=== PATIENT | male | born 1995 | race Caucasian/White ===

== ENCOUNTER 2017-08-08 18:29 | Emergency (ER) | payer BC, MEDICAID, SELFPAY ==
[2017-08-08 18:31] VITALS: BP 122/76; PULSE 86; RESP 16; TEMP 36.5; O2SAT 97; BMI 25.0
--- NOTE | 2017-08-08 19:18 | CT_ITS ---
STUDY: CT ABDOMEN AND PELVIS WITHOUT CONTRAST REASON FOR EXAM: Male, 22 years old. Right upper quadrant pain today RADIATION DOSAGE (If Supplied By Facility): CTDIvol = ( 6.37 ) mGy, DLP = ( 316.94 ) mGycm TECHNIQUE: Transaxial images were obtained from the dome of the diaphragm to the symphysis pubis without oral contrast, and without intravenous contrast. Sagittal and coronal images were reconstructed. Individualized dose optimization techniques were used for this CT. COMPARISON: None. FINDINGS: The visualized lung bases are unremarkable. The visualized portions of the heart are within normal limits. Small amount of pneumobilia. Otherwise, unremarkable liver. There is non-visualization of the gallbladder, which may be secondary to either contraction or a prior cholecystectomy. Normal spleen. Normal pancreas. Normal bilateral adrenal glands. Normal right kidney. Normal left kidney. Normal visualized stomach. Normal small intestine. Fecal retention throughout the colon, otherwise within normal limits. The appendix is visualized and appears normal. Multiple small lymph nodes in the right lower quadrant and mesenteric region. Could represent mesenteric lymphadenitis. Normal abdominal aorta. Normal inferior vena cava. Normal retroperitoneum. Normal urinary bladder. Normal visualized prostate gland. Normal abdominal wall. Normal osseous structures. CT/Abdomen/Pelvis without Cont IMPRESSION: 1. Nonvisualized appendix. Possibly contracted versus surgically absent. Small amount of pneumobilia. 2. Normal appendix. Multiple small lymph nodes in the right lower quadrant region could represent mesenteric lymphadenitis 3. Fecal retention within the colon. Electronically Signed: Billy Patel DO at 20:22 EDT Tel , Service support ,
[2017-08-08 19:53] LABS: AST(SGOT) 17 U/L (15-37); Alanine Aminotransfer ALT/SGPT 19 U/L (16-61); Albumin, Serum 3.3 g/dL (3.2-5.0); Alkaline Phosphatase 92 U/L (45-117); Anion Gap 4 (5-15); BUN 15 mg/dL (7-18); Calcium,Total 8.3 mg/dL (8.5-10.1); Chloride 109 mmol/L (98-107); Creatinine, Serum 1.15 mg/dL (0.70-1.30); EST Glomerular Filtration Rate 84 mL/min (>60); Est Glom Filt Rate - Afr Amer 102 mL/min (>60); Estimated Creatinine Clearance 77.81 ml/min; Globulin 3.4 g/dL (2.2-4.2); Glucose 85 mg/dL (74-106); Lipase 205 U/L (73-393); Potassium 3.7 mmol/L (3.5-5.1); Protein, Total 6.7 g/dL (6.4-8.2); Sodium Level 143 mmol/L (136-145)
[2017-08-08 19:56] LABS: Basophil# 0.02 X10^3/uL; Basophil% 0.3 % (0-1); Eosinophil# 0.11 X10^3/uL; Eosinophils% 1.6 % (0-5); Hematocrit 36.6 % (40-54); Hemoglobin 10.6 g/dl (13.0-16.5); Lymphocyte % 20.4 % (19-41); Mean Corpuscular Hgb 21.7 pg (27.0-32.0); Mean Platelet Vol. 10.6 fl (6.2-12.0); Monocyte# 0.31 X10^3/uL; Monocyte% 4.5 % (0-10); Neutrophil # 5.02 X10^3/uL (2.7-7.7); Neutrophil % 73.1 % (47-70); Platelet Count 235 K/mm3 (150-450); RBC Distribution Width CV 18.8 % (11.6-14.6); RBC Distribution Width SD 51.1 fl (35.1-43.9); Red Blood Count 4.88 M/mm3 (4.6-6.2); White Blood Count 6.9 K/mm3 (4.4-11.0)
[2017-08-08 19:57] LABS: Differential Indicated SCAN CRITERIA MET; POSITIVE COUNT NO; POSITIVE DIFFERENTIAL NO; POSITIVE MORPHOLOGY YES
[2017-08-08 20:05] LABS: Bacteria 0 SEEN /hpf (None Seen); Mucous, Urine 0 SEEN /hpf (<or=2+); Red Blood Cells-Urine 0 SEEN /hpf (0-5); Squamous Epithelial Cells - UA 0 SEEN /hpf (0-5); White Blood Cells 0 SEEN /hpf (0-5)
[2017-08-08 20:06] LABS: Color, Urine Yellow (Yellow); Glucose, Dipstick Normal (Normal); Ketone-Dipstick Negative (Negative); Leukocyte Esterase-Dipstick Negative /ul (Negative); Nitrite-Dipstick Negative (Negative); Occult Blood-Urine Negative /ul (Negative); Protein-Dipstick Negative (Negative); Urine Bilirubin Dipstick Negative (Negative); Urine Clarity Clear (Clear); Urine Urobilinogen Normal (Normal)
[2017-08-08 20:26] LABS: Differential Comment SCANNED; Platelet Estimate ADEQUATE (ADEQ)
--- NOTE | 2017-08-08 20:32 | ED.VISSUMM ---
- ER Visit Summary Date of Service: 08/08/17 Chief Complaint: [Abdominal pain] History of Present Illness: The patient is a 22 M [presents to the emergency department with abdominal pain that started a few weeks ago. Patient was seen by unit operator and diagnosed with possible gastritis versus possible peptic ulcer disease and started on Prilosec. Over the last 24 hours patient has had decreased appetite and while at school complaint of right lower quadrant pain several times that doubled him over. Mom is concerned because patient apparently has a high pain tolerance. Child does have a history of Down syndrome, sleep apnea, anxiety, autism. Child has not had a fever. He has had some nausea but no vomiting. Denies urinary symptoms.] Physical Examination: [HEENT-PERRLA, EOMI. Cranial nerves II through XII grossly intact. TMs clear. Mucous membranes moist. No adenopathy. Cardiovascular-regular rate and rhythm without murmur or ectopy Lungs-clear to auscultation, chest wall stable without crepitus or subcu emphysema Abdomen-normoactive bowel sounds, soft with mild diffuse tenderness. No rebound, rigidity, or perineal signs Extremities-intact ?4, normal range of motion, normal pulses, atraumatic] Test Results: [CBC with differential showing a 6.9, hemoglobin 10.6, hematocrit 37, platelets 275. Chemistries were normal. LFTs were normal. Lipase was 205. Urinalysis was normal. CT flank showed a normal appendix, absent gallbladder, scattered lymph nodes in the right lower quadrant which may represent mesenteric adenitis.] Emergency Department Course and Treatment: [None] Treatment Plan: [Follow-up with unit operator as patient does have endoscopy scheduled in about a month.] Disposition: [Discharged to home in stable condition.] Impression: [Abdominal pain-etiology uncertain] This note was generated with [employer] dictation software. It may contain incorrect words, spelling, and punctuation that were not noted in review of the chart prior to signing ED Disposition - Plan for ED Patient: Chief Complaint: Abd Pain Referrals: Billy Barth MD [Primary Care Provider] -
--- NOTE | 2017-08-08 20:35 | ED.DCSUM_ITS ---
- ER Visit Summary Date of Service: 08/08/17 Chief Complaint: [Abdominal pain] History of Present Illness: The patient is a 22 M [presents to the emergency department with abdominal pain that started a few weeks ago. Patient was seen by dairy nutrition specialist and diagnosed with possible gastritis versus possible peptic ulcer disease and started on Prilosec. Over the last 24 hours patient has had decreased appetite and while at school complaint of right lower quadrant pain several times that doubled him over. Mom is concerned because patient apparently has a high pain tolerance. Child does have a history of Down syndrome, sleep apnea, anxiety, autism. Child has not had a fever. He has had some nausea but no vomiting. Denies urinary symptoms.] Physical Examination: [HEENT-PERRLA, EOMI. Cranial nerves II through XII grossly intact. TMs clear. Mucous membranes moist. No adenopathy. Cardiovascular-regular rate and rhythm without murmur or ectopy Lungs-clear to auscultation, chest wall stable without crepitus or subcu emphysema Abdomen-normoactive bowel sounds, soft with mild diffuse tenderness. No rebound , rigidity, or perineal signs Extremities-intact ?4, normal range of motion, normal pulses, atraumatic] Test Results: [CBC with differential showing a 6.9, hemoglobin 10.6, hematocrit 37, platelets 275. Chemistries were normal. LFTs were normal. Lipase was 205. Urinalysis was normal. CT flank showed a normal appendix, absent gallbladder, scattered lymph nodes in the right lower quadrant which may represent mesenteric adenitis.] Emergency Department Course and Treatment: [None] Treatment Plan: [Follow-up with dairy nutrition specialist as patient does have endoscopy scheduled in about a month.] Disposition: [Discharged to home in stable condition.] Impression: [Abdominal pain-etiology uncertain] This note was generated with [employer] dictation software. It may contain incorrect words, spelling, and punctuation that were not noted in review of the chart prior to signing ED Disposition - Plan for ED Patient: Chief Complaint: Abd Pain Referrals: Billy Barth MD [Primary Care Provider] -
--- NOTE | 2017-08-08 20:35 | ED.DEP ---
ED Disposition - Plan for ED Patient: Chief Complaint: Abd Pain Instructions: ED Abdominal Pain Unkn Cause Male Referrals: Billy Barth MD [Primary Care Provider] - 3-5 Days
[2017-08-08 20:48] VITALS: BP 120/62; PULSE 79; RESP 16; O2SAT 96
== END 2017-08-08 20:48 | disposition home or self-care (01) ==
PROVIDERS: Emergency Provider Emergency Medicine; Family Provider Pediatrics; PCP Pediatrics
DX: R10.31 Right lower quadrant pain (principal); Q90.9 Down syndrome, unspecified; G47.30 Sleep apnea, unspecified; F84.0 Autistic disorder; F41.9 Anxiety disorder, unspecified; Z79.899 Other long term (current) drug therapy; R11.0 Nausea
CPT/HCPCS: 74176; 80053; 81001; 83690; 85025; 99283; J7030; A4216

== ENCOUNTER 2017-09-18 23:33 | Emergency (ER) | payer BC, MEDICAID, SELFPAY ==
[2017-09-18 23:34] VITALS: BP 125/58; PULSE 109; RESP 16; TEMP 39.5; O2SAT 98; BMI 23.6
[2017-09-19] MEDS: Ibuprofen 200 MG Tablet 400 MG PO (00:24)
--- NOTE | 2017-09-19 01:22 | ED.DCSUM_ITS ---
- ER Visit Summary Date of Service: 09/19/17 Chief Complaint: Fever History of Present Illness: The patient is a 22 M presenting for evaluation secondary to fever. Patient has a history of Down syndrome. Patient has had 2 days of fever that has been associated with some dizziness and nasal congestion. Patient was seen by primary care yesterday, was told that this likely was a viral illness, and was recommended conservative care. Patient had elevation of temperatures, so primary care started the patient on a course of Augmentin, first dose was given this evening. Patient apparently at home had a fever as high as 106 at 2330. Family decided to take patient in to the emergency department for further evaluation. Patient is not complaining of any headaches or neck stiffness has no skin rashes review of systems her parents otherwise negative. Physical Examination: Vital signs are within normal limits, patient is afebrile. General: Patient is well-nourished well-developed and in no acute distress. Head: Normocephalic, atraumatic Eyes: Pupils equal round and reactive bilaterally, extra occular motion intact bialterally ENT: Moist mucous membranes, normal TMs bilaterally, normal posterior oropharynx Neck: Supple, no lymphadenopathy, no JVD, no meningismus CVS: Heart regular rate and rhythm, no murmurs, rubs or gallops, radial pulses 2 + bilaterally Resp: Respirations nondistressed, lung sounds clear bilaterally Abdomen: Soft, nontender, nondistended, no palpable masses, normal bowel sounds Back: Nontender Extremities: Nontender, atraumatic, active full range of motion, no peripheral edema Skin: warm, no rashes, no petechia Neuro: Alert and oriented x 4, CN 2-12 intact, no lateralizing neurological defecits Psyc: Normal affect Test Results: Influenza negative Emergency Department Course and Treatment: Patient presented for evaluation secondary to fever. She was treated with ibuprofen in the emergency department. Flu swab was found to be negative. There is no evidence of other bacterial nidus of infection at this time, patient is already on Augmentin which really should cover most typical illnesses. Patient has no signs or symptoms consistent with meningitis encephalitis or other serious illness. I do not believe that further workup is necessary. Repeat temperature at 0 121 showed patient's temperature to be 94. Patient will be discharged with continued Augmentin and febrile management at home. Disposition: Discharge Impression: 1. Febrile illness This note was generated with Dragon dictation software. It may contain incorrect words, spelling, and punctuation that were not noted in review of the chart prior to signing ED Disposition - Plan for ED Patient: Disposition: Home or Assisted Living Chief Complaint: Fever Diagnosis: Febrile illness Instructions: ED Fever Unconf Cause Referrals: Billy Barth MD [Primary Care Provider] - As Needed
== END 2017-09-19 01:29 | disposition home or self-care (01) ==
PROVIDERS: Emergency Provider Emergency Medicine; Family Provider Pediatrics; PCP Pediatrics
DX: R50.9 Fever, unspecified (principal); Q90.9 Down syndrome, unspecified; R42 Dizziness and giddiness; Z79.899 Other long term (current) drug therapy
CPT/HCPCS: 87804; 99282

== ENCOUNTER 2017-09-24 18:31 | Emergency (ER) | payer BC, MEDICAID, SELFPAY ==
[2017-09-24 18:32] VITALS: BP 145/66; PULSE 110; RESP 16; TEMP 36.6; O2SAT 99; BMI 22.6
--- NOTE | 2017-09-24 19:35 | EKG12_ITS ---
Test Reason : FEVER Blood Pressure : / mmHG Vent. Rate : 110 BPM Atrial Rate : 110 BPM P-R Int : 128 ms QRS Dur : 084 ms QT Int : 320 ms P-R-T Axes : 066 068 036 degrees QTc Int : 433 ms Sinus tachycardia Otherwise normal ECG Confirmed by YOGI NAJERA, ALLISON ([id number]), newspaper or periodical editor MICHELLE CATHERINE ([id number]) on 09/27/2017 1:30:53 PM Referred By: SALINA Confirmed By:ALLISON CALIX MD
[2017-09-24] MEDS: 0.9% Normal Saline 1,000 ML 150 ML IV (19:55)
--- NOTE | 2017-09-24 20:00 | ED.VISSUMM ---
- ER Visit Summary Date of Service: 09/24/17 Chief Complaint: Fever History of Present Illness: The patient is a 22 M patient with fever and sore throat for the past week. T-max of 106 forehead. Mother states went to urgent care on Monday initially reported diagnosed with sinus infection placed on Augmentin, Claritin, Flonase. Patient later went to the ED here that evening for increasing fever, had influenza that was negative. Patient continued medicines. Started having diarrhea up until Monday. Patient will return to urgent care 2 days ago had a strep test that was negative. Unclear on culture. However had increasing ulcers in the mouth was placed on 1 day of valacyclovir. Augmentin was stopped. He been using Tylenol and Motrin, last dose earlier today approximately 6 hours ago. There has been no cough. Patient history of Down syndrome, anxiety, obstructive sleep apnea, GERD. Previous surgeries have been cholecystectomy along with tonsils and adenoids, also had biliary stents ?2. Physical Examination: General: Alert and oriented ?3, no acute distress HEENT: Normocephalic, atraumatic. Moist mucosa membranes there is cutaneous ulcers and soft palate along with posterior pharynx, there is cracking and ulcerations of the lower lips. There is a strawberry tongue. Airways patent. Mild rash bilateral cheeks. Normal conjunctiva. Neck: supple, anterior lymphadenopathy bilaterally. Cardiovascular: Regular rate and rhythm, no murmurs Respiratory: Normal breath sounds, symmetric, no distress Abdomen: Soft, nontender, nondistended Extremities: Nontender, no edema, pulses intact ?4. There is no cracking or rashes of the hands or feet. Neuro: no focal neurological deficits. Test Results: EKG sinus rate of 100, no ST changes, T-wave inversion in leads III. CBC, BMP, blood cultures, throat culture pending Emergency Department Course and Treatment: Patient is given IV fluids due to tachycardia. Patient's clinical findings and persistent fever concerns for Kawasaki disease. He has cracking lips with mucocutaneous ulcers, strawberry tongue, persistent fever, facial rash. His vitals are stable afebrile in the ED here. With this being the pediatric illness, patient with Down syndrome, do feel he may benefit from a pediatric management. I spoke with family agrees to talk to [facility]. I spoke with transfer line and Dr. Noffsinger, discussed the findings. He is excepted [facility]. He did not want to start aspirin until patient is evaluated. Spoke with family. They would like to take the patient themselves to [facility]. He is stable. IV will be left. They will be directed directly to [facility]. Treatment Plan: [] Disposition: Transfer to [facility] Impression: Kawasaki's syndrome This note was generated with [employer] dictation software. It may contain incorrect words, spelling, and punctuation that were not noted in review of the chart prior to signing ED Disposition - Plan for ED Patient: Disposition: [facility] Chief Complaint: Fever Diagnosis: Kawasaki's disease Referrals: Billy Barth MD [Primary Care Provider] -
[2017-09-24 20:43] LABS: Absolute Lymphocyte Count 1.07 X10^3/ul (0.83-4.51); Absolute Neutrophil Count 3.7 X10^3/uL (2.0-7.7); Basophil# 0.01 X10^3/uL; Basophil% 0.2 % (0-1); Differential Indicated SCAN CRITERIA MET; Eosinophil# 0.06 X10^3/uL; Eosinophils% 1.1 % (0-5); Hematocrit 33.3 % (40-54); Hemoglobin 10.1 g/dl (13.0-16.5); Lymphocyte # 1.07 X10^3/ul (4.0); Lymphocyte % 20.2 % (19-41); Mean Corp Hgb Conc 30.3 g/gl (32-36); Mean Corpuscular Hgb 21.6 pg (27.0-32.0); Mean Corpuscular Volume 71.3 fL (80-94); Mean Platelet Vol. 10.6 fl (6.2-12.0); Monocyte# 0.48 X10^3/uL; Monocyte% 9.1 % (0-10); Neutrophil # 3.65 X10^3/uL (2.7-7.7); POSITIVE COUNT NO; POSITIVE DIFFERENTIAL NO; POSITIVE MORPHOLOGY YES; Platelet Count 272 K/mm3 (150-450); RBC Distribution Width CV 19.4 % (11.6-14.6); RBC Distribution Width SD 50.1 fl (35.1-43.9); Red Blood Count 4.67 M/mm3 (4.6-6.2); White Blood Count 5.3 K/mm3 (4.4-11.0)
[2017-09-24 20:44] LABS: Lactic Acid 0.9 mmol/L (0.4-2.0)
[2017-09-24 20:47] LABS: ALB/GLOB Ratio 0.7 RATIO (0.9-2.4); AST(SGOT) 18 U/L (15-37); Alanine Aminotransfer ALT/SGPT 18 U/L (16-61); Albumin, Serum 2.9 g/dL (3.2-5.0); Alkaline Phosphatase 137 U/L (45-117); Anion Gap 10 (5-15); BUN 15 mg/dL (7-18); BUN/Creat Ratio 12.4 RATIO (10-20); Calcium,Total 8.7 mg/dL (8.5-10.1); Chloride 106 mmol/L (98-107); Creatinine, Serum 1.21 mg/dL (0.70-1.30); EST Glomerular Filtration Rate 79 mL/min (>60); Est Glom Filt Rate - Afr Amer 96 mL/min (>60); Estimated Creatinine Clearance 77.07 ml/min; Globulin 4.3 g/dL (2.2-4.2); Glucose 85 mg/dL (74-106); Protein, Total 7.2 g/dL (6.4-8.2); Sodium Level 141 mmol/L (136-145)
[2017-09-24 21:20] VITALS: PULSE 99; RESP 20; O2SAT 99
[2017-09-24 21:28] LABS: Differential Comment SCANNED
[2017-09-24 21:29] LABS: Anisocytosis 1+; Hypochromasia RARE; Microcytosis 1+; Ovalocyte 1+; Platelet Estimate ADEQUATE (ADEQ); Polychromasia RARE
== END 2017-09-24 21:22 | disposition designated cancer center or children's hospital (05) ==
PROVIDERS: Emergency Provider Emergency Medicine; Family Provider Pediatrics; PCP Pediatrics
DX: M30.3 Mucocutaneous lymph node syndrome [Kawasaki] (principal); Q90.9 Down syndrome, unspecified; F41.9 Anxiety disorder, unspecified; G47.33 Obstructive sleep apnea (adult) (pediatric); K21.9 Gastro-esophageal reflux disease without esophagitis; Z90.49 Acquired absence of other specified parts of digestive tract; Z79.899 Other long term (current) drug therapy
CPT/HCPCS: 80053; 83605; 84484; 85025; 87040; 87070; 93005; 96360; 99285; J7030; J7040; A4216

== ENCOUNTER 2020-06-22 09:59 | Emergency (ER) | payer OTHER, MEDICAID, SELFPAY ==
[2020-06-22 10:01] VITALS: BP 122/68; PULSE 107; RESP 17; TEMP 37.3; O2SAT 92; BMI 23.8
--- NOTE | 2020-06-22 10:19 | CT_ITS ---
STUDY: CT ABDOMEN AND PELVIS WITH CONTRAST REASON FOR EXAM: Male, 25 years old. ABD PAIN, DIARRHEA X 2 WEEKS, HX COVID RADIATION DOSAGE (If Supplied By Facility): CTDIvol = ( 15.21 ) mGy, DLP = ( 550.29 ) mGycm TECHNIQUE: Transaxial images were obtained from the dome of the diaphragm to the symphysis pubis without oral contrast. Oral and amp; IV Readi-CAT and amp; 100mL Isovue-300 was administered. Sagittal and coronal images were reconstructed. Individualized dose optimization techniques were used for this CT. COMPARISON: Comparison is made with prior study dated 08/08/2017. FINDINGS: Mild bibasilar pulmonary infiltrates. Minimal bilateral pleural effusions slightly more prominent on the right side. The visualized portions of the heart are within normal limits. Normal liver. The patient is status post cholecystectomy. There is evidence of a pneumobilia in the left lobe of the liver. This is unchanged. There is a 2 cm x 2.7 cm rounded hypodensity in the lateral aspect of the left lobe of the liver. There is mild splenomegaly. Normal pancreas. Normal bilateral adrenal glands. Normal right kidney. Normal left kidney. Normal visualized stomach. Normal small intestine. Nonspecific thickening of the wall of the colon worse in the left hemicolon suggestive of a colitis. The appendix is visualized and appears normal. Normal abdominal aorta. Normal inferior vena cava. Normal retroperitoneum. Diffusely thickened urinary bladder wall although the bladder is not completely distended. There is a small umbilical hernia containing fat. Normal osseous structures. CT/Abdomen/Pelvis WITH Contrast IMPRESSION: Colitis. Thickening of the urinary bladder wall although the bladder is not completely distended. Pneumobilia in the left lobe of the liver with a 2 cm x 2.7 cm well-defined nodule in the lateral aspect of the left lobe liver. Patchy bibasilar infiltrates. Electronically Signed: Willy Fontaine MD at 13:03 EST , Service support ,
--- NOTE | 2020-06-22 10:21 | ED.VISSUMM ---
- ER Visit Summary Date of Service: 06/22/20 Chief Complaint: Abdominal pain History of Present Illness: The patient is a 25 M who presents with abdominal pain, nausea, vomiting, and diarrhea for the past 2 weeks. Mother states patient has had watery diarrhea for 2 weeks. Mother states that his appetite has been decreasing. Mother states patient was able to eat chicken broth last night but has not been able to eat much over the past week. Patient admits to aching pain across his abdomen. Mother denies any melena or hematochezia. Mother denies any hematemesis or coffee-ground emesis. Patient states his pain is worse with eating. Patient did test positive for COVID-19 on 06/16/2020. Mother states patient has been having fevers up to 102 at home. Patient also admits to a cough. Physical Examination: Vital signs are stable except for mild tachycardia of 107. Patient is afebrile. Patient is in no acute distress. Oral mucosa is pink and slightly dry. Neck is supple. Trachea is midline. There is no JVD. Heart was regular rate and rhythm. Lungs are clear and equal bilaterally. Abdomen is soft. Bowel sounds are normal. There is diffuse tenderness. There is no rebound or guarding noted. Cranial nerves II through XII are intact. There are no focal motor or sensory deficits. Extremities are intact. There is no calf tenderness or edema. Test Results: CBC shows white blood cell count of 2.4. Comprehensive metabolic profile showed slightly elevated creatinine 1.39. Alk phos was slightly elevated to 49. Lipase was normal. Urinalysis does not show any evidence of urinary tract infection. CT scan of the abdomen pelvis was obtained. There is colitis. There are patchy bibasilar infiltrates. This was interpreted by the radiologist and reviewed by myself. Emergency Department Course and Treatment: Patient was given IV fluids and Zofran here. Patient was given p.o. fluids. Patient was given Cipro and Flagyl orally here. Patient is given prescriptions for Zofran, Cipro and Flagyl. Mother was instructed to advance his diet as tolerated. Mother was instructed to have the patient drink small sips of fluids but more frequently. Mother was instructed to follow-up with the patient's primary care physician in 5 to 7 days. Mother understood and was agreeable with the plan. All questions were answered. Disposition: Discharge home Impression: 1. Colitis 2. COVID-19 pneumonia This note was generated with [employer] software. It may contain incorrect words, spelling, and punctuation that were not noted in review of the chart prior to signing ED Disposition - Plan for ED Patient: Disposition: Home or Assisted Living Diagnosis: Colitis, Pneumonia due to COVID-19 virus Instructions: Coronavirus Disease 2019 (COVID-19): Overview, ED Vomiting and Diarrhea ... Prescriptions: Ciprofloxacin [Cipro] 500 mg PO BID #14 tab Transmission Status: Pending to [id number] metroNIDAZOLE [Flagyl] 500 mg PO Q6H #40 tab Transmission Status: Pending to [id number] Ondansetron [Zofran Odt] 4 mg PO Q8H PRN PRN #10 tab PRN Reason: Nausea Transmission Status: Pending to [id number] Referrals: Calderon Tubbs MD [Primary Care Provider] - 5-7 Days
[2020-06-22] MEDS: 0.9% Normal Saline 1,000 ML 1000 ML IV (10:44)
[2020-06-22] MEDS: Ondansetron 4 MG/2 ML Vial IV (10:44)
[2020-06-22 10:57] LABS: Bacteria 0 SEEN /hpf (None Seen); Mucous, Urine 0 SEEN /hpf (<or=2+); Red Blood Cells-Urine 0 SEEN /hpf (0-5); Squamous Epithelial Cells - UA 0 SEEN /hpf (0-5)
[2020-06-22 11:06] LABS: Absolute Lymphocyte Count 0.49 X10^3/uL (0.83-4.51); Absolute Neutrophil Count 1.8 X10^3/uL (2.0-7.7); Hematocrit 41.9 % (40-54); Hemoglobin 12.5 g/dL (13.0-16.5); Lymphocyte # 0.49 X10^3/ul (4.0); Lymphocyte % 20.2 % (19-41); Mean Corp Hgb Conc 29.8 g/dL (32-36); Mean Corpuscular Hgb 23.3 pg (27.0-32.0); Mean Corpuscular Volume 78.2 fL (80-94); Monocyte# 0.11 X10^3/uL; Monocyte% 4.5 % (0-10); NRBC Flagged by Analyzer 0 % (0-5); Neutrophil # 1.81 X10^3/uL (2.7-7.7); Neutrophil % 74.5 % (47-70); POSITIVE DIFFERENTIAL YES; Platelet Count 163 K/mm3 (150-450); RBC Distribution Width CV 19.2 % (11.6-14.6); RBC Distribution Width SD 51.9 fl (35.1-43.9); Red Blood Count 5.36 M/mm3 (4.6-6.2); White Blood Count 2.4 K/mm3 (4.4-11.0)
[2020-06-22 11:07] LABS: Color, Urine Yellow (Yellow); Glucose, Dipstick Normal (Normal); Ketone-Dipstick 5 mg/dl (Negative); Leukocyte Esterase-Dipstick 25 /ul (Negative); Nitrite-Dipstick Negative (Negative); Occult Blood-Urine Negative /ul (Negative); Protein-Dipstick 30 mg/dl (Negative); Specific Gravity, Urine 1.025 (1.002-1.030); Urine Bilirubin Dipstick 1 mg/dL (Negative); Urine Clarity Clear (Clear); Urine Urobilinogen 1 mg/dl (Normal)
[2020-06-22 11:08] LABS: Differential Indicated SCAN CRITERIA MET
[2020-06-22 11:12] LABS: White Blood Cells 0-5 SEEN /hpf (0-5)
[2020-06-22 11:23] LABS: ALB/GLOB Ratio 0.8 RATIO (0.9-2.4); AST(SGOT) 50 U/L (15-37); Alanine Aminotransfer ALT/SGPT 63 U/L (16-61); Albumin, Serum 3.1 g/dL (3.2-5.0); Alkaline Phosphatase 249 U/L (45-117); Anion Gap 10 (5-15); BUN 20 mg/dL (7-18); BUN/Creat Ratio 14.4 RATIO (10-20); Calcium,Total 8.7 mg/dL (8.5-10.1); Chloride 105 mmol/L (98-107); Creatinine, Serum 1.39 mg/dL (0.70-1.30); EST Glomerular Filtration Rate 66 mL/min (>60); Est Glom Filt Rate - Afr Amer 80 mL/min (>60); Estimated Creatinine Clearance 68.03 ml/min; Globulin 3.8 g/dL (2.2-4.2); Glucose 104 mg/dL (74-106); Lipase 312 U/L (73-393); Protein, Total 6.9 g/dL (6.4-8.2); Sodium Level 138 mmol/L (136-145)
[2020-06-22] MEDS: Ciprofloxacin 500 MG Tablet PO (14:02)
[2020-06-22] MEDS: metroNIDAZOLE 500 MG Tablet PO (14:02)
[2020-06-22 14:03] VITALS: BP 125/76; PULSE 99; RESP 15; O2SAT 97
[2020-06-23 13:21] LABS: Pathologist Review Reviewed
== END 2020-06-22 14:06 | disposition home or self-care (01) ==
PROVIDERS: Emergency Provider Emergency Medicine; PCP Family Medicine
DX: U07.1 COVID-19 (principal); K52.9 Noninfective gastroenteritis and colitis, unspecified; J12.82 Pneumonia due to coronavirus disease 2019; Z79.899 Other long term (current) drug therapy
CPT/HCPCS: 74177; 80053; 81001; 83690; 85025; 96361; 96374; 99284; J7030; Q9967; A4216; J2405

== ENCOUNTER 2020-06-25 10:19 | Inpatient (IN) | payer OTHER, MEDICAID, SELFPAY ==
[2020-06-25] VITALS (9 sets, daily range): BP systolic 97–123; BP diastolic 58–69; PULSE 75–102; RESP 18–35; TEMP 36.5–37.4; O2SAT 86–98; BMI 22.6; BMI 23.2; BMI 23.1
--- NOTE | 2020-06-25 10:21 | EKG12_ITS ---
Test Reason : SOB Blood Pressure : / mmHG Vent. Rate : 100 BPM Atrial Rate : 100 BPM P-R Int : 116 ms QRS Dur : 086 ms QT Int : 336 ms P-R-T Axes : 059 049 031 degrees QTc Int : 433 ms Normal sinus rhythm Normal ECG Confirmed by YOGI NAJERA, ALLISON ([id number]), managing editor DANIS DONNELLY ([id number]) on 06/26/2020 11:17:22 AM Referred By: OLGA Confirmed By:ALLISON CALIX MD
--- NOTE | 2020-06-25 10:24 | ED.VIS.GEN ---
History of Present Illness Chief Complaint: Shortness of Breath Narrative: Patient is brought in by parents, he was diagnosed with pneumonia from Covid as well as colitis a few days ago in the ED however at that time he was oxygenating well he was placed on Cipro and Flagyl for his colitis and sent home. He still has some diarrhea and has some dehydration however today the parents noticed that he was having difficulty breathing and he was hypoxic on the home pulse ox of 83%. Patient has Down syndrome but however he is high functioning and tell me a reasonable review of system and reasonable history. Past medical history: Down syndrome, COVID-19, colitis Medications: Cipro and Flagyl as above Social history: Lives at home with his parents Review of systems: All systems negative except as indicated General: History of fevers however no fever today Eyes: Denies: Visual changes - bilaterally ENT: Denies: Rhinorrhea, Sore throat Cardiovascular: Denies: Chest pain Respiratory: Shortness of breath with some slight nonproductive cough Gastrointestinal: Abdominal pain is improving, he still has some diarrhea. Genitourinary: Denies: Dysuria Musculoskeletal: Denies: Myalgias Skin: Denies: Rash Neurological: Denies: Headache, no focal weakness Psych: Reports: negative Hematologic: Denies: Easy bruising, Easy bleeding Physical exam General: Down syndrome features, does appear in some distress. Head: Normocephalic, Atraumatic Eyes: Conjunctiva not pale ENT: Dry mucous membranes. Some cyanosis around the lips. Neck: Supple, Nontender, No lymphadenopathy Cardiovascular: Regular rate, Regular rhythm, I could not appreciate a murmur however auscultation was difficult due to environment Respiratory: Tachypneic, he has mostly clear breath sounds bilaterally with only some scant coarse breath sounds. He is speaking in full sentences. No retractions. Abdomen: Soft, palpated, no significant tenderness. Back: Nontender, Normal Inspection. Negative for: CVA tenderness Extremities: Nontender, No edema Skin: Normal color, No rash Neurological: No focal deficit Past Medical History - Allergies and Home Meds Allergies/Adverse Reactions: Allergies Penicillins [PCN] Allergy (Unknown, Verified 06/25/20 10:20) Other MOTHER SEVERLY ALLERGIC TO PCN AND DOES NOT WANT SON TO HAVE Primary Care Physician: Calderon Tubbs MD [Primary Care Provider] - Smoking Status: Never smoker Diagnostic/Tx/Re-eval Chest X-Ray - ED: 1 View, Read by ED Physician, - - Medical Decision Making Patient is tolerating his mask quite well, because of his hypoxia I will admit him. I did give him steroids in the emergency department. ED Disposition - Plan for ED Patient: Disposition: [facility] Diagnosis: COVID-19, Hypoxia Referrals: Calderon Tubbs MD [Primary Care Provider] -
[2020-06-25 11:52] LABS: Hematocrit 40.7 % (40-54); Hemoglobin 12.3 g/dL (13.0-16.5); Mean Corp Hgb Conc 30.2 g/dL (32-36); Mean Corpuscular Hgb 23.7 pg (27.0-32.0); Mean Corpuscular Volume 78.6 fL (80-94); Mean Platelet Vol. 11.2 fl (6.2-12.0); Platelet Count 141 K/mm3 (150-450); RBC Distribution Width CV 19.3 % (11.6-14.6); RBC Distribution Width SD 53.1 fl (35.1-43.9); Red Blood Count 5.18 M/mm3 (4.6-6.2); White Blood Count 2.2 K/mm3 (4.4-11.0)
--- NOTE | 2020-06-25 12:05 | RAD_ITS ---
STUDY: X-RAY CHEST REASON FOR EXAM: Male, 25 years old. Shortness of breath x 16 days TECHNIQUE: Single AP portable view of the chest. COMPARISON: Comparison is made with prior study dated 05/08/2015. FINDINGS: EKG electrodes are seen. Patchy bilateral infiltrates worse in the left hemithorax. There is no demonstrated pleural abnormality. Normal size heart. Normal mediastinum and cleo. Normal visualized pulmonary arteries. Normal visualized aortic arch and descending thoracic aorta. Normal visualized thoracic spine. Normal visualized ribs, clavicles, and shoulders. There is no demonstrated abnormality of the visualized soft tissue structures of the upper abdomen. RAD/Chest 1 View (Portable) IMPRESSION: Patchy bilateral infiltrates worse in the left hemithorax. Follow-up is recommended. Electronically Signed: Willy Fontaine MD at 12:30 EST , Service support ,
--- NOTE | 2020-06-25 12:05 | NURSING ---
This nurse coming onto floor at this time. Will catch patient up for charting and monitor for distress. No report received yet, chart reviewed.
[2020-06-25 12:07] LABS: ALB/GLOB Ratio 0.8 RATIO (0.9-2.4); AST(SGOT) 75 U/L (15-37); Alanine Aminotransfer ALT/SGPT 63 U/L (16-61); Albumin, Serum 2.8 g/dL (3.2-5.0); Alkaline Phosphatase 188 U/L (45-117); Anion Gap 7 (5-15); BUN 16 mg/dL (7-18); BUN/Creat Ratio 12.4 RATIO (10-20); Calcium,Total 8.3 mg/dL (8.5-10.1); Chloride 104 mmol/L (98-107); Creatinine, Serum 1.29 mg/dL (0.70-1.30); EST Glomerular Filtration Rate 72 mL/min (>60); Est Glom Filt Rate - Afr Amer 87 mL/min (>60); Globulin 3.5 g/dL (2.2-4.2); Glucose 116 mg/dL (74-106); Potassium 4.1 mmol/L (3.5-5.1); Protein, Total 6.3 g/dL (6.4-8.2); Sodium Level 136 mmol/L (136-145)
--- NOTE | 2020-06-25 12:37 | CT_ITS ---
STUDY: CTA CHEST REASON FOR EXAM: Male, 25 years old. +COVID DAY 16, INCREASED SHORTNESS OF BREATH, ABD PAIN RADIATION DOSAGE (If Supplied By Facility): CTDIvol = ( 10.24 ) mGy, DLP = ( 970.50 ) mGycm TECHNIQUE: The examination was performed with the intravenous administration of IV 75mL Isovue-370. Post-processing of the angiographic images was performed, with multiplanar reformation and 3D reconstruction. Individualized dose optimization techniques were used for this CT. COMPARISON: None. FINDINGS: Normal enhancement of the main pulmonary artery and right and left pulmonary arteries. Normal enhancement of the bilateral peripheral pulmonary arteries. There is no demonstrated pulmonary embolism. Normal thoracic aorta and visualized great vessels. There is no demonstrated aortic dissection. Normal heart and pericardium. Normal mediastinum. Normal hilar regions. Normal visualized trachea and bronchi. The lungs are well expanded. Multiple bilateral patchy infiltrates throughout both lungs involving the upper and lower lobes. There is a tendency towards peripheral infiltration and distribution suggestive of possible Covid pneumonitis. Small bilateral pleural effusions. Normal chest wall structures. Normal osseous structures. See detailed report on the CT scan the abdomen and pelvis. CT/CTA Chest W/WO Contrast IMPRESSION: Multiple bilateral patchy infiltrates involving both lungs as described. Small bilateral pleural effusions. Electronically Signed: Willy Fontaine MD at 13:43 EST , Service support ,
--- NOTE | 2020-06-25 12:37 | CT_ITS ---
STUDY: CT ABDOMEN AND PELVIS WITH CONTRAST REASON FOR EXAM: Male, 25 years old. +COVID DAY 16, INCREASED SHORTNESS OF BREATH, ABD PAIN RADIATION DOSAGE (If Supplied By Facility): CTDIvol = ( 10.24 ) mGy, DLP = ( 970.50 ) mGycm TECHNIQUE: Transaxial images were obtained from the dome of the diaphragm to the symphysis pubis without oral contrast. IV 75mL Isovue-370 was administered. Sagittal and coronal images were reconstructed. Individualized dose optimization techniques were used for this CT. COMPARISON: Comparison is made with prior examination of 06/22/2020. FINDINGS: Since prior examination, there has been progressive infiltrates in the lower lobes with small bilateral pleural effusions. The visualized portions of the heart are within normal limits. Pneumobilia in the left intrahepatic biliary ducts. Persistent 3.2 cm x 1.9 cm hypodensity in the lateral aspect of the left lobe of the liver. There is some peripheral enhancement. This may represent an hemangioma. The patient is status post cholecystectomy. There is mild splenomegaly. Normal pancreas. Normal bilateral adrenal glands. Normal right kidney. Normal left kidney. Normal visualized stomach. Normal small intestine. Normal colon. The appendix is visualized and appears normal. Normal abdominal aorta. Normal inferior vena cava. Normal retroperitoneum. There is a 2.1 cm x 3.3 cm polypoid filling defect at the base of the bladder. Normal abdominal wall. Normal osseous structures. CT/Abdomen/Pelvis W IV Cont ONLY IMPRESSION: Small bilateral pleural effusions with progressive infiltrates in both lower lobes. Stable appearance of the pneumobilia in the left lobe of the liver. Stable 3.2 cm x 1.9 cm hypodensity in the lateral aspect of the left lobe of the liver suggestive of a small hemangioma. 2.1 cm x 3.3 cm polypoid filling defect at the base of the bladder. Electronically Signed: Willy Fontaine MD at 13:40 EST , Service support ,
[2020-06-25] MEDS: dexAMETHasone 10 MG/ML Vial 6 MG IV (12:58)
[2020-06-25 13:09] LABS: Color, Urine Yellow (Yellow); Glucose, Dipstick Normal (Normal); Ketone-Dipstick 15 mg/dl (Negative); Leukocyte Esterase-Dipstick 100 /ul (Negative); Nitrite-Dipstick Positive (Negative); Occult Blood-Urine Negative /ul (Negative); Protein-Dipstick 30 mg/dl (Negative); Specific Gravity, Urine 1.025 (1.002-1.030); Urine Bilirubin Dipstick Negative (Negative); Urine Clarity Sl. Cloudy (Clear); Urine Urobilinogen 1 mg/dl (Normal)
[2020-06-25 13:17] LABS: AST(SGOT) 78 U/L (15-37); Alanine Aminotransfer ALT/SGPT 64 U/L (16-61); Albumin, Serum 2.8 g/dL (3.2-5.0); Alkaline Phosphatase 182 U/L (45-117); Bilirubin, Direct < 0.05 mg/dL (0.00-0.30); Globulin 3.6 g/dL (2.2-4.2); Protein, Total 6.4 g/dL (6.4-8.2)
--- NOTE | 2020-06-25 14:18 | NURSING ---
PCU KOTSONIS PNEUMONIA, COVID
--- NOTE | 2020-06-25 14:36 | NURSING ---
DR DE LA GARZA IN ROOM
--- NOTE | 2020-06-25 16:11 | HP.PCM_ITS ---
History of Present Illness Date of Admission: 06/25/20 Chief Complaint: Shortness of breath and abdominal pain The patient is a 25 year old M with a PMH as below who presents to the hospital with abdominal pain and worsening shortness of breath and dyspnea on exertion. He does have a history of Down syndrome and so a lot of the history was obtained from the parents. They state that he had been symptomatic with Covid with a cough which started 16 days ago. The abdominal pain had been fairly consistent at that time as well, on 06/22/2020 they presented to the ER he was found to have colitis on his abdominal CT, as well as a slightly thickened bladder. He was sent home with oral Cipro and Flagyl however presents today now with hypoxia. They tested him at home and he had 83% on room air. When he presented to the hospital he was 86% on room air therefore he was started on a Ventimask because he does not tolerate nasal cannula. Chest x-ray demonstrates worse bilateral pulmonary infiltrates with a normal temperature and leukopenia. Past Medical History Allergies Penicillins [PCN] Allergy (Unknown, Verified 06/25/20 10:20) Other MOTHER SEVERLY ALLERGIC TO PCN AND DOES NOT WANT SON TO HAVE Home Medications: Ambulatory Orders Medication Instructions Recorded Sertraline HCl [Zoloft] 50 mg PO DAILY 03/05/15 Fluticasone 0.05% [Flonase Nasal 1 spray NASAL DAILY 09/24/17 [place]] Loratadine [Claritin] 10 mg PO DAILY 09/24/17 Ciprofloxacin [Cipro] 500 mg PO BID #14 tab 06/22/20 Omeprazole Magnesium [Prilosec Otc] 20 mg PO DAILY 06/22/20 Ondansetron [Zofran Odt] 4 mg PO Q8H PRN PRN #10 tab 06/22/20 metroNIDAZOLE [Flagyl] 500 mg PO Q6H #40 tab 06/22/20 Cholecalciferol (Vitamin D3) 2,000 unit PO DAILY 06/25/20 [D3-1999] Surgical History: cholecystectomy, - - Multiple ERCPs Lives: With Family Smoking Status: Never smoker Alcohol: None Drugs: None - *Family History Maternal History Items: No pertinent history Paternal History Items: High Cholesterol Review of Systems Constitutional: Reports: Fever. Denies: Chills, Weight Change HEENT: Denies: Head Aches, Sinus Congestion, Sinus Drainage Cardiovascular: Denies: Chest Pain, Palpitations Respiratory: Reports: Shortness of Breath. Denies: Cough, Shortness of breath at rest, Sputum production Gastrointestinal: Reports: Abdominal Pain, Diarrhea. Denies: Nausea, Vomiting Genitourinary: Denies: Dysuria Musculoskeletal: Denies: Joint Pain, Joint Tenderness Skin: Denies: Rash, Wounds Neurological: Denies: Focal weakness, Numbness, Tingling Psychiatric: Denies: Anxiety, Depression Hematologic/ Lymphatic: Denies: Easy Bruising, Easy Bleeding VTE Information - Inpt Only VTE Present on Admission: No Patient Problems: Active and Suspected Problems COVID-19 (Acute) Hypoxia (Acute) - Physical Exam Vitals/I&O's: Vital Signs Temp Pulse Resp BP Pulse Ox 99.0 F 84 27 H 123/69 H 94 06/25/20 15:59 06/25/20 15:59 06/25/20 15:59 06/25/20 15:59 06/25/20 15:59 Oxygen Flow Rate (L/min) 6 Oxygen Delivery Method Venturi Mask Weight: 135 lb 2.294 oz Body Mass Index (BMI) 23.1 Intake and Output for Last 24 Hours 06/23/20 06/24/20 06/25/20 23:59 23:59 23:59 Intake Total 500 / 500 Balance 500 / 500 General: Alert, Oriented x3, Cooperative, No apparent distress HEENT: Atraumatic, PERRLA, EOMI, Normocephalic Oral: Dry Mucosa Neck: Supple, No JVD Lungs: Normal air movement, No rhonchi, No wheeze, No rales, Diminished Cardiovascular: Regular rate, Regular Rhythm, Normal S1, Normal S2, No murmurs Abdomen: Soft, Non-Distended, No Hepato-splenomegaly, Tender Extremities: No edema, Capillary Refill Less than 3 Seconds Skin: No rashes, No breakdown Neurological: Neuro grossly intact, Sensory exam intact to light touch and pain Psych/Mental Status: Flat Affect Laboratory Results 06/25/20 11:40: WBC 2.2 L, RBC 5.18, Hgb 12.3 L, Hct 40.7, MCV 78.6 L, MCH 23.7 L, MCHC 30.2 L, RDW Std Deviation 53.1 H, RDW Coeff of Vidal 19.3 H, Plt Count 141 L, MPV 11.2 06/25/20 11:40: Sodium 136, Potassium 4.1, Chloride 104, Carbon Dioxide 25.0, Anion Gap 7, BUN 16, Creatinine 1.29, Estim Creat Clear Calc 73.30, Est GFR (MDRD) Af Amer 87, Est GFR (MDRD) Non-Af 72, BUN/Creatinine Ratio 12.4, Glucose 116 H, Calcium 8.3 L, Total Bilirubin 0.30, AST 75 H, ALT 63 H, Alkaline Phosphatase 188 H, Troponin I < 0.015, Total Protein 6.3 L, Albumin 2.8 L, Globulin 3.5, Albumin/Globulin Ratio 0.8 L 06/25/20 11:40: Total Bilirubin 0.40, Direct Bilirubin < 0.05, AST 78 H, ALT 64 H, Alkaline Phosphatase 182 H, Total Protein 6.4, Albumin 2.8 L, Globulin 3.6 06/25/20 12:55: Urine Color Yellow, Urine Clarity Sl. Cloudy, Urine pH 5.0, Ur Specific [place] 1.025, Urine Protein 30 H, Urine Glucose (UA) Normal, Urine Ketones 15 H, Urine Occult Blood Negative, Urine Nitrite Positive H, Urine Bilirubin Negative, Urine Urobilinogen 1 H, Ur Leukocyte Esterase 100 H Current Medications Acetaminophen (Acetaminophen 325 Mg Tablet) 650 mg PO Q6H PRN PRN PRN Reason: Pain Score 1-10/Temp > 100.7 F Dexamethasone Sodium Phosphate (Dexamethasone 4 Mg/Ml Vial) 6 mg IV DAILY [facility] Stop: 07/04/20 10:01 Enoxaparin Sodium (Enoxaparin 40 Mg/0.4 Ml Syringe) 40 mg SC DAILY [facility] Sodium Chloride () 1,000 mls @ 100 mls/hr IV .Q10H [facility] Stop: 06/25/20 21:04 Ciprofloxacin (Cipro) 400 mg in 200 mls @ 200 mls/hr IV Q12 [facility] Metronidazole (Flagyl) 500 mg in 100 mls @ 100 mls/hr IV Q8 [facility] Melatonin (Melatonin 3 Mg Tablet) 3 mg PO QHS PRN PRN PRN Reason: INSOMNIA Ondansetron HCl (Ondansetron 4 Mg/2 Ml Vial) 4 mg IV Q8H PRN PRN PRN Reason: NAUSEA/VOMITING Sodium Chloride (0.9% Saline Lock 10 Ml Syringe) 10 - 40 ml IV UD PRN PRN Reason: SALINE FLUSH Assessment/Plan All Active Problems COVID-19 (Acute) Hypoxia (Acute) 1. Acute hypoxic respiratory failure secondary to COVID-19 pneumonia/infectious colitis -Symptoms started 16 days ago, and he tested +3 to 4 days after that -With his parents, and his brother had Covid -Given that he is greater than 2 weeks out from symptom onset, will hold off on giving him remdesivir and just proceed with Decadron -We will proceed with Cipro and Flagyl, and make him n.p.o. -Because of the combination of his infectious colitis and Covid, will give him a little bit of fluid however I did discuss with his parents that it is better to keep Covid patients a little bit on the soap drier operator side, so he will receive a total of 1 L of IV fluids and then will adjust as necessary -We will check a strep urine antigen as well as Legionella antigen as well as a respiratory panel 2. 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 Down syndrome/anxiety/depression -Stable -Continue with Zoloft DVT: Lovenox Inpatient E&M: 07328 Init Hosp L3
[2020-06-25] MEDS: 0.9% Normal Saline 1,000 ML 100 ML IV (16:44)
[2020-06-25] MEDS: metroNIDAZOLE 500 MG/100 ML BAG 100 MG IV (20:45)
[2020-06-25] MEDS: Ciprofloxacin 400 MG/200 ML BAG 200 MG IV (21:58)
[2020-06-26] VITALS (9 sets, daily range): BP systolic 84–97; BP diastolic 42–61; PULSE 62–88; RESP 18–22; TEMP 36.4–37; O2SAT 90–96; BMI 23.1
[2020-06-26] MEDS: metroNIDAZOLE 500 MG/100 ML BAG 100 MG IV ×3 (05:59→21:09)
[2020-06-26] MEDS: guaiFENesin 10 ML UDC (200MG/10ML) 20 ML PO ×2 (06:06→15:39)
[2020-06-26 06:10] LABS: Absolute Lymphocyte Count 0.33 X10^3/uL (0.83-4.51); Absolute Neutrophil Count 1.2 X10^3/uL (2.0-7.7); Hematocrit 36.1 % (40-54); Hemoglobin 11.2 g/dL (13.0-16.5); Lymphocyte # 0.33 X10^3/ul (4.0); Lymphocyte % 19.8 % (19-41); Mean Corpuscular Hgb 24.1 pg (27.0-32.0); Mean Corpuscular Volume 77.6 fL (80-94); Mean Platelet Vol. 10.6 fl (6.2-12.0); Monocyte# 0.09 X10^3/uL; Monocyte% 5.4 % (0-10); NRBC Flagged by Analyzer 0 % (0-5); Neutrophil # 1.21 X10^3/uL (2.7-7.7); Neutrophil % 72.4 % (47-70); POSITIVE DIFFERENTIAL YES; POSITIVE MORPHOLOGY YES; Platelet Count 142 K/mm3 (150-450); RBC Distribution Width CV 19.8 % (11.6-14.6); RBC Distribution Width SD 54.6 fl (35.1-43.9); Red Blood Count 4.65 M/mm3 (4.6-6.2); White Blood Count 1.7 K/mm3 (4.4-11.0)
[2020-06-26 06:12] LABS: Differential Indicated SCAN CRITERIA MET
[2020-06-26 06:34] LABS: Anion Gap 8 (5-15); BUN 16 mg/dL (7-18); BUN/Creat Ratio 16.6 RATIO (10-20); Chloride 107 mmol/L (98-107); Creatinine, Serum 0.96 mg/dL (0.70-1.30); EST Glomerular Filtration Rate 101 mL/min (>60); Est Glom Filt Rate - Afr Amer 122 mL/min (>60); Glucose 105 mg/dL (74-106); Potassium 4.2 mmol/L (3.5-5.1); Sodium Level 138 mmol/L (136-145)
[2020-06-26 06:36] LABS: Differential Comment SCANNED
[2020-06-26 06:37] LABS: Anisocytosis 2+; Microcytosis 2+; Ovalocyte RARE
[2020-06-26 06:38] LABS: Schistocytes RARE
--- NOTE | 2020-06-26 09:14 | PN_ITS ---
Patient Problems: Active and Suspected Problems COVID-19 (Acute) Hypoxia (Acute) Subjective: Doing better, he is coming down on his oxygen and his abdominal pain is feeling better. He has not had a bowel movement 2 days. Vitals/I&O's: Vital Signs Temp Pulse Resp BP Pulse Ox 98.6 F 62 20 H 97/55 L 92 06/26/20 06:05 06/26/20 03:20 06/26/20 03:20 06/26/20 03:20 06/26/20 05:38 Oxygen Flow Rate (L/min) 6 Oxygen Delivery Method Venturi Mask Weight: 135 lb 2.294 oz Body Mass Index (BMI) 23.1 Intake and Output for Last 24 Hours 06/24/20 06/25/20 06/26/20 23:59 23:59 23:59 Intake Total 1299 / 2099 1400 / 1400 Balance 1299 / 2099 1399 / 1400 General: Alert, Oriented x3, Cooperative, No apparent distress HEENT: Atraumatic, PERRLA, EOMI, Normocephalic Oral: Dry Mucosa Neck: Supple, No JVD Lungs: Normal air movement, No rhonchi, No wheeze, No rales, Diminished Cardiovascular: Regular rate, Regular Rhythm, Normal S1, Normal S2, No murmurs Abdomen: Soft, Non-Distended, No Hepato-splenomegaly, nontender Extremities: No edema, Capillary Refill Less than 3 Seconds Skin: No rashes, No breakdown Neurological: Neuro grossly intact, Sensory exam intact to light touch and pain Psych/Mental Status: Flat Affect Microbiology Past 72 Hours 06/25/20 19:37 Mucosa - Nasopharyngeal Respiratory Panel (PCR) - Final 06/25/20 12:55 Urine, Clean Catch Legionella Antigen - Final 06/25/20 12:55 Urine, Clean Catch Streptococcus pneumoniae Antigen (M - Final Laboratory Results 06/25/20 11:40: WBC 2.2 L, RBC 5.18, Hgb 12.3 L, Hct 40.7, MCV 78.6 L, MCH 23.7 L, MCHC 30.2 L, RDW Std Deviation 53.1 H, RDW Coeff of Vidal 19.3 H, Plt Count 141 L, MPV 11.2 06/25/20 11:40: Sodium 136, Potassium 4.1, Chloride 104, Carbon Dioxide 25.0, Anion Gap 7, BUN 16, Creatinine 1.29, Estim Creat Clear Calc 73.30, Est GFR (MDRD) Af Amer 87, Est GFR (MDRD) Non-Af 72, BUN/Creatinine Ratio 12.4, Glucose 116 H, Calcium 8.3 L, Total Bilirubin 0.30, AST 75 H, ALT 63 H, Alkaline Phosphatase 188 H, Troponin I < 0.015, Total Protein 6.3 L, Albumin 2.8 L, Globulin 3.5, Albumin/Globulin Ratio 0.8 L 06/25/20 11:40: Total Bilirubin 0.40, Direct Bilirubin < 0.05, AST 78 H, ALT 64 H, Alkaline Phosphatase 182 H, Total Protein 6.4, Albumin 2.8 L, Globulin 3.6 06/25/20 12:55: Urine Color Yellow, Urine Clarity Sl. Cloudy, Urine pH 5.0, Ur Specific [place] 1.025, Urine Protein 30 H, Urine Glucose (UA) Normal, Urine Ketones 15 H, Urine Occult Blood Negative, Urine Nitrite Positive H, Urine Bilirubin Negative, Urine Urobilinogen 1 H, Ur Leukocyte Esterase 100 H 06/26/20 05:35: WBC 1.7 L, RBC 4.65, Hgb 11.2 L, Hct 36.1 L, MCV 77.6 L, MCH 24.1 L, MCHC 31.0 L, RDW Std Deviation 54.6 H, RDW Coeff of Vidal 19.8 H, Plt Count 142 L, MPV 10.6, Immature Gran % (Auto) 2.400 H, Neut % (Auto) 72.4 H, Lymph % (Auto) 19.8, [place] % (Auto) 5.4, Eos % (Auto) 0.0, Baso % (Auto) 0.0, Absolute Neuts (auto) 1.2 L, Absolute Lymphs (auto) 0.33 L, Nucleated RBC % 0, Differential Comment SCANNED, Diff Path Review May foll, Anisocytosis 2+, Microcytosis 2+, Ovalocytes RARE, Schistocytes RARE 06/26/20 05:35: Sodium 138, Potassium 4.2, Chloride 107, Carbon Dioxide 23.0, Anion Gap 8, BUN 16, Creatinine 0.96, Estim Creat Clear Calc 98.50, Est GFR (MDRD) Af Amer 122, Est GFR (MDRD) Non-Af 101, BUN/Creatinine Ratio 16.6, Glucose 105, Calcium 8.0 L Current Medications Acetaminophen (Acetaminophen 325 Mg Tablet) 650 mg PO Q6H PRN PRN PRN Reason: Pain Score 1-10/Temp > 100.7 F Calamine/Phenol (Menthol/Lanolin/Calamine/Znox 113 Gm Tube) 1 applic TOPICAL BID [facility]; Protocol Dexamethasone Sodium Phosphate (Dexamethasone 4 Mg/Ml Vial) 6 mg IV DAILY [facility] Stop: 07/04/20 10:01 Enoxaparin Sodium (Enoxaparin 40 Mg/0.4 Ml Syringe) 40 mg SC DAILY [facility] Guaifenesin (Guaifenesin 10 Ml Udc (200mg/10ml)) 20 ml PO Q4H PRN PRN PRN Reason: COUGH Last Admin: 06/26/20 06:06 Dose: 20 ml Documented by: Ciprofloxacin (Cipro) 400 mg in 200 mls @ 200 mls/hr IV Q12 [facility] Last Infusion: 06/25/20 23:10 Dose: Infused Documented by: Metronidazole (Flagyl) 500 mg in 100 mls @ 100 mls/hr IV Q8 [facility] Last Infusion: 06/26/20 07:15 Dose: Infused Documented by: Loratadine (Loratadine 10 Mg Tablet) 10 mg PO DAILY [facility] Melatonin (Melatonin 3 Mg Tablet) 3 mg PO QHS PRN PRN PRN Reason: INSOMNIA Ondansetron HCl (Ondansetron 4 Mg/2 Ml Vial) 4 mg IV Q8H PRN PRN PRN Reason: NAUSEA/VOMITING Pantoprazole Sodium (Pantoprazole Sodium 20 Mg Tablet) 20 mg PO DAILY [facility] Sertraline HCl (Sertraline 50 Mg Tablet) 50 mg PO DAILY [facility] Sodium Chloride (0.9% Saline Lock 10 Ml Syringe) 10 - 40 ml IV UD PRN PRN Reason: SALINE FLUSH STROKE Vital Signs/Narrative: Vital Signs Temp Pulse Ox 06/26/20 06:05 98.6 F 06/26/20 05:38 92 Medical Necessity - Tobacco Use Smoking Status: Never smoker Assessment/Plan All Active Problems COVID-19 (Acute) Hypoxia (Acute) 1. Acute hypoxic respiratory failure secondary to COVID-19 pneumonia/infectious colitis -Symptoms started 16 days ago, and he tested +3 to 4 days after that -With his parents, and his brother had Covid -Given that he is greater than 2 weeks out from symptom onset, will hold off on giving him remdesivir and just proceed with Decadron -We will proceed with Cipro and Flagdean, will start him on clears today and see how he does -Oxygen is coming down therefore we will plan for an amatory pulse ox in the morning -Because of the combination of his infectious colitis and Covid, will give him a little bit of fluid however I did discuss with his parents that it is better to keep Covid patients a little bit on the bone drier side, so he will receive a total of 1 L of IV fluids and then will adjust as necessary -Legionella and strep urine antigens as well as respiratory panel were unremarkable 2. 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 Down syndrome/anxiety/depression -Stable -Continue with Zoloft DVT: Lovenox Inpatient E&M: 17136 Subs Hosp L2
[2020-06-26] MEDS: Ciprofloxacin 400 MG/200 ML BAG 200 MG IV ×2 (09:51→22:21)
[2020-06-26] MEDS: Pantoprazole Sodium 20 MG Tablet PO (09:52)
[2020-06-26] MEDS: Loratadine 10 MG Tablet PO (09:52)
[2020-06-26] MEDS: Sertraline 50 MG Tablet PO (09:52)
[2020-06-26] MEDS: Enoxaparin 40 MG/0.4 ML Syringe SC (09:53)
[2020-06-26] MEDS: Menthol/Lanolin/Calamine/Znox 113 GM Tube 1 APPLIC TOPICAL ×2 (09:54→21:10)
[2020-06-26] MEDS: dexAMETHasone 4 MG/ML Vial 6 MG IV (09:55)
--- NOTE | 2020-06-26 10:40 | CASEMGMT ---
EDEL MELTON called father in room for initial transition planning/care coordination assessment. EDEL MELTON introduced self and role at [facility]. Patient has down syndrome and parents are guardians. Father Akin willing to participate in assessment and is able to answer all questions appropriately. Care providers, pharmacy, and demographics verified. Father wishes for patient to discharge home, denies need for home health at this time. Will monitor for need for home oxygen. Father states he has no further needs or concerns at this time. CM to follow for discharge planning needs that may arise. PCP: Suly Specialists: AUDREY Treviño Preferred Pharmacy: [facility] Insurance: MMO, [place] Prescription Benefit: yes Living Will/HPOA: none LNOK: parents who are patient's legal guardians Living Arrangements: Patient lives with parents in a 2 story home. Patient lives in basement and is able to ambulate stairs. Patient is independent with self care. Transportation: parents DME/HHC: Parents deny any DME or previous HHC. Will monitor for need for home oxygen. Parents were provided a list of DME providers consistent with the patient?s preferred geographic region, medical needs, and insurance network. Disposition Plan: Patient to discharge home with family support and follow-up plans in place. Jacklyn ROWAN, RN, CM
[2020-06-26 13:19] LABS: Pathologist Review Reviewed
--- NOTE | 2020-06-26 14:57 | PCM.NTREPORT ---
Nutrition Therapy Report - History Current diet / nutrition support order:: clear liquids - Anthropometric Measurements Height:: 5 ft 4 in Weight:: 61.3 kg Body Mass Index (BMI):: 23.1 - Relevant Labs Relevant Labs:: WBC 1.7 K/mm3 (4.4-11.0) L 06/26/20 05:35 Hgb 11.2 g/dL (13.0-16.5) L 06/26/20 05:35 Hct 36.1 % (40-54) L 06/26/20 05:35 MCV 77.6 fL (80-94) L 06/26/20 05:35 MCH 24.1 pg (27.0-32.0) L 06/26/20 05:35 MCHC 31.0 g/dL (32-36) L 06/26/20 05:35 RDW Std Deviation 54.6 fl (35.1-43.9) H 06/26/20 05:35 RDW Coeff of Vidal 19.8 % (11.6-14.6) H 06/26/20 05:35 Plt Count 142 K/mm3 (150-450) L 06/26/20 05:35 Immature Gran % (Auto) 2.400 % (0.0-0.9) H 06/26/20 05:35 Neut % (Auto) 72.4 % (47-70) H 06/26/20 05:35 Absolute Neuts (auto) 1.2 X10^3/uL (2.0-7.7) L 06/26/20 05:35 Absolute Lymphs (auto) 0.33 X10^3/uL (0.83-4.51) L 06/26/20 05:35 Glucose 116 mg/dL (74-106) H 06/25/20 11:40 Calcium 8.0 mg/dL (8.5-10.1) L 06/26/20 05:35 AST 75 U/L (15-37) H 06/25/20 11:40 AST 78 U/L (15-37) H 06/25/20 11:40 ALT 63 U/L (16-61) H 06/25/20 11:40 ALT 64 U/L (16-61) H 06/25/20 11:40 Alkaline Phosphatase 182 U/L (45-117) H 06/25/20 11:40 Alkaline Phosphatase 188 U/L (45-117) H 06/25/20 11:40 Total Protein 6.3 g/dL (6.4-8.2) L 06/25/20 11:40 Albumin 2.8 g/dL (3.2-5.0) L 06/25/20 11:40 Albumin 2.8 g/dL (3.2-5.0) L 06/25/20 11:40 Albumin/Globulin Ratio 0.8 RATIO (0.9-2.4) L 06/25/20 11:40 - Assessment Food / Nutrition-Related History:: UBW: 63.18 kg - wt loss of 2.9% x 1 wk. Mom reports pt doing okay w/ fluids mud analysis well logging captain - intake to be established in the hospital. Pt mom reports pt needs assist w/ meals - is on a low residue diet at home d/t can't digest fiber - can eat canned fruits/vegetables w/out seeds - can eat fresh fruit banana only. Mom agreeable to pt receiving ONS w/ meals for increased nutrition if consumed. [ End ]. [ End ]. [ End ] - Nutrition Diagnosis Problem / Etiology / Signs & Symptoms (PES):: Inadequate oral po intake r/t physiological causes increasing nutrient needs d/t acute illness (COVID/PNA) aeb poor po intake and 2.9% wt loss mud analysis well logging captain. [ End ] Evidence of Malnutrition Exists:: Yes Severe PCM:: Acute Illness - Nutrition Intervention Nutrition Prescription:: [id number] shane/day (RMR x 1.3). 70-75 gm pro/day (1.2 gm/kg). 2000 ml fluid/day (1 ml/shane). [ End ] - Food / Nutrient Delivery Interventions Summary of nutrition intervention:: As medically able, rec YEE to Regular / low fiber. Will order ONS w/ meals for increased nutrition if consumed. [ End ] - MNT Monitoring Further MNT monitoring and evaluation required?: Yes MNT Follow-up in:: 3-5 days - please call RD/LD if questions/concerns at [phone]
--- NOTE | 2020-06-26 17:53 | CASEMGMT ---
RN GERONIMO NOTE: Per Dr Crockett, he anticipates pt may be ready for discharge home tomorrow. Pt currently on O2 via 28% Venti Mask @ 5 L/M d/t unable to tolerate the NC. Call placed to [employer]. Per Daria, they do not provide Venti masks in the home d/t they do not work with the concentrators d/t pressure flow requirements for the Venti mask. She states they do have simple oxygen masks and could provide this for pt @ home. Spoke w/[employer] in [employer]. They were made aware of above. Per [employer], O2 flow rate for simple masks can range b/w 6-10 L/M, and should not be lower than 6 L/M d/t risk of CO2 retention. NC prongs have been shortened by [employer] to see if pt can tolerate the NC better. Pt's father, Akin, educated on reason why attempt at tolerance of NC w/shorten prongs is being made. He was made aware if pt unable to tolerate NC, then he would need to go home on a simple oxygen mask. Educated that with simple mask, O2 liter flow cannot be lower than 6 L/M, as CO2 retention can occur. Akin voices understanding and states that pt seems to be currently tolerating the NC with the shortened prongs well and states, We will make it work. He was made aware to notify staff if pt unable to tolerate NC w/shortened prongs. Green sheets on chart for O2 through [employer] for both NC and for oxygen mask. If pt qualifies for home O2 @ discharge and able to tolerate NC w/shortened prongs, then pt to go home w/NC. If pt unable to tolerate NC, then pt will need to go home w/oxygen mask from [employer]. Nursing to reinforce teaching with pt's parents that O2 liter flow cannot go lower than 6 L/M via the oxygen mask. Eugene BSN EDEL CM
[2020-06-27 02:30] VITALS: BP 88/47; PULSE 58; RESP 20; TEMP 36.3; O2SAT 94
[2020-06-27 05:19] LABS: ALB/GLOB Ratio 0.8 RATIO (0.9-2.4); AST(SGOT) 33 U/L (15-37); Alanine Aminotransfer ALT/SGPT 39 U/L (16-61); Albumin, Serum 2.3 g/dL (3.2-5.0); Alkaline Phosphatase 138 U/L (45-117); Anion Gap 7 (5-15); BUN 14 mg/dL (7-18); BUN/Creat Ratio 17.3 RATIO (10-20); Calcium,Total 7.6 mg/dL (8.5-10.1); Chloride 108 mmol/L (98-107); Creatinine, Serum 0.81 mg/dL (0.70-1.30); EST Glomerular Filtration Rate 123 mL/min (>60); Est Glom Filt Rate - Afr Amer 149 mL/min (>60); Estimated Creatinine Clearance 116.74 ml/min; Globulin 2.8 g/dL (2.2-4.2); Glucose 117 mg/dL (74-106); Potassium 4.3 mmol/L (3.5-5.1); Protein, Total 5.1 g/dL (6.4-8.2); Sodium Level 140 mmol/L (136-145)
[2020-06-27 05:29] VITALS: BP 89/50; PULSE 61; RESP 20; TEMP 36.6; O2SAT 94
[2020-06-27] MEDS: metroNIDAZOLE 500 MG/100 ML BAG 100 MG IV (05:29)
[2020-06-27 07:59] LABS: Absolute Lymphocyte Count 0.55 X10^3/uL (0.83-4.51); Absolute Neutrophil Count 1.7 X10^3/uL (2.0-7.7); Basophil# 0.01 X10^3/uL; Basophil% 0.4 % (0-1); Hematocrit 39.8 % (40-54); Hemoglobin 12.3 g/dL (13.0-16.5); Lymphocyte # 0.55 X10^3/ul (4.0); Lymphocyte % 21.9 % (19-41); Mean Corp Hgb Conc 30.9 g/dL (32-36); Mean Corpuscular Hgb 24.1 pg (27.0-32.0); Mean Platelet Vol. 10.8 fl (6.2-12.0); Monocyte# 0.19 X10^3/uL; Monocyte% 7.6 % (0-10); NRBC Flagged by Analyzer 0 % (0-5); Neutrophil # 1.71 X10^3/uL (2.7-7.7); Neutrophil % 68.1 % (47-70); POSITIVE DIFFERENTIAL YES; POSITIVE MORPHOLOGY YES; Platelet Count 180 K/mm3 (150-450); RBC Distribution Width CV 19.9 % (11.6-14.6); RBC Distribution Width SD 54.4 fl (35.1-43.9); White Blood Count 2.5 K/mm3 (4.4-11.0)
[2020-06-27 08:04] LABS: Differential Indicated SCAN CRITERIA MET
[2020-06-27 08:36] VITALS: O2SAT 86
[2020-06-27 08:37] VITALS: BP 112/74; PULSE 85; RESP 16; TEMP 36.7; O2SAT 94
[2020-06-27 08:37] LABS: Anisocytosis 1+
[2020-06-27 08:39] VITALS: O2SAT 86; O2SAT 90; O2SAT 91
[2020-06-27] MEDS: Loratadine 10 MG Tablet PO (08:40)
[2020-06-27] MEDS: Pantoprazole Sodium 20 MG Tablet PO (08:40)
[2020-06-27] MEDS: Sertraline 50 MG Tablet PO (08:40)
[2020-06-27] MEDS: Enoxaparin 40 MG/0.4 ML Syringe SC (08:41)
[2020-06-27] MEDS: dexAMETHasone 4 MG/ML Vial 6 MG IV (08:41)
[2020-06-27] MEDS: Ciprofloxacin 400 MG/200 ML BAG 200 MG IV (09:21)
[2020-06-27] MEDS: Menthol/Lanolin/Calamine/Znox 113 GM Tube 1 APPLIC TOPICAL (09:22)
--- NOTE | 2020-06-27 10:11 | DCINST_ITS ---
- Discharge Diagnoses Current Active Problems: Current Active and Chronic Problems COVID-19 (Acute) Hypoxia (Acute) You will use the following diet at home:: No restrictions Your food should be the consistency of: Regular Your liquids should be the consistency of: Regular/Thin Discharge Activity: Return to Normal Activity Call your doctor if you observe: Fever of 101 or Higher, Shortness of breath, Dizziness, Fainting spells, Swelling in the ankles, Chest pain, Increased palpitations (irregular heartbeat) Instructions: Coronavirus Disease 2019 (COVID-19): Overview, Coronavirus Disease 2019 (COVID-19): Caring for Yourself or Others, ED Gastroenteritis, Bacterial (Adult) Allergies/Adverse Reactions: Allergies Penicillins [PCN] Allergy (Unknown, Verified 06/25/20 10:20) Other MOTHER SEVERLY ALLERGIC TO PCN AND DOES NOT WANT SON TO HAVE Medications to take at Discharge Sertraline HCl [Zoloft] 50 mg PO DAILY 03/05/15 Fluticasone 0.05% [Flonase Nasal [place]] 1 spray NASAL DAILY 09/24/17 Loratadine [Claritin] 10 mg PO DAILY 09/24/17 Ciprofloxacin [Cipro] 500 mg PO BID #14 tab 06/22/20 Omeprazole Magnesium [Prilosec Otc] 20 mg PO DAILY 06/22/20 Ondansetron [Zofran Odt] 4 mg PO Q8H PRN PRN #10 tab 06/22/20 metroNIDAZOLE [Flagyl] 500 mg PO Q6H #40 tab 06/22/20 Cholecalciferol (Vitamin D3) [D3-2000] 2,000 unit PO DAILY 06/25/20 Dexamethasone [Decadron] 6 mg PO DAILY #21 tab 06/27/20 The following prescriptions were given: Dexamethasone [Decadron] 6 mg PO DAILY #21 tab Transmission Status: Pending to [facility] Primary Care Physician: Calderon Tubbs MD [Primary Care Provider] - Please follow up with your Primary Care Physician in: 3-5 days Test Results: Test results from this visit will be discussed in further detail at your follow- up appointment, if applicable.
--- NOTE | 2020-06-27 10:49 | NURSING ---
pt having blood in stools, dr smith aware, no new orders
--- NOTE | 2020-06-27 13:15 | CM.UR ---
Spoke with [facility] answering service then Dano called me to discuss the setting up the oxygen. Gave him information to speak with patient's mom to set up the home o2. Dave Meyers RN, [facility].
--- NOTE | 2020-06-27 14:32 | DS.PCM_ITS ---
Discharge Date and Diagnosis - Problem List Patient Problems: Active and Suspected Problems COVID-19 (Acute) Hypoxia (Acute) Date of Admission: 06/25/20 Date of Discharge: 06/27/20 - Primary Discharge Diagnosis Acute Problems: Active Problems COVID-19 (Acute) Hypoxia (Acute) Hospital Course and Treatment Imaging Results: Clinical Impression(s) from Imaging Studies Chest X-Ray 06/25/20 12:05 IMPRESSION: Patchy bilateral infiltrates worse in the left hemithorax. Follow-up is recommended. Electronically Signed: Willy Fontaine MD at 12:30 EST , Service support , Abdomen/Pelvis CT 06/25/20 12:37 IMPRESSION: Small bilateral pleural effusions with progressive infiltrates in both lower lobes. Stable appearance of the pneumobilia in the left lobe of the liver. Stable 3.2 cm x 1.9 cm hypodensity in the lateral aspect of the left lobe of the liver suggestive of a small hemangioma. 2.1 cm x 3.3 cm polypoid filling defect at the base of the bladder. Electronically Signed: Willy Fontaine MD at 13:40 EST , Service support , Chest CTA 06/25/20 12:37 IMPRESSION: Multiple bilateral patchy infiltrates involving both lungs as described. Small bilateral pleural effusions. Electronically Signed: Willy Fontaine MD at 13:43 EST , Service support , Operations: None Procedures: None Summary of Care Provided: Per HPI: The patient is a 25 year old M with a PMH as below who presents to the hospital with abdominal pain and worsening shortness of breath and dyspnea on exertion. He does have a history of Down syndrome and so a lot of the history was obtained from the parents. They state that he had been symptomatic with Covid with a cough which started 16 days ago. The abdominal pain had been fairly consistent at that time as well, on 06/22/2020 they presented to the ER he was found to have colitis on his abdominal CT, as well as a slightly thickened bladder. He was sent home with oral Cipro and Flagyl however presents today now with hypoxia. They tested him at home and he had 83% on room air. When he presented to the hospital he was 86% on room air therefore he was started on a Ventimask because he does not tolerate nasal cannula. Chest x-ray demonstrates worse bilateral pulmonary infiltrates with a normal temperature and leukopenia. Hospital Course: 1. Acute hypoxic respiratory failure secondary to COVID-19 pneumonia/infectious [id number] male with Down syndrome presents to the hospital with worsening abdominal pain diarrhea as well as new hypoxia. He had tested positive for Covid about 14 days prior to admission and had been symptomatic for about 16 days prior to admission. He started having abdominal cramping and then nasal congestion is his main symptoms. However after he presented to the hospital on the first he developed some hypoxia. He tolerated nasal cannula and only needed about 4 L for ambulation and at rest. He was started on Decadron as he had not received any steroid treatment for his Covid diagnosis however he was too far out to likely receive any benefit from remdesivir. His abdominal pain completely resolved and he was able to tolerate p.o. intake therefore he was discharged on his oral Cipro and Flagyl to finish at home. I discussed with the family to check his pulse ox periodically while he is on the 4 L nasal cannula and to follow-up with his PCP as an outpatient. He will complete a total of 10 days of Decadron on discharge. I discussed the plan for discharge today with the family and they expressed understanding of the risk and benefits of going home and feel like he will do okay at home now that he has oxygen. 2. Stenotic duodenum, chronic pneumobilia status post instrumentation, GERD, Down syndrome, anxiety, depression are all chronic medical conditions which complicate his care. His home medications were continued where appropriate. Patient Problems: Active and Suspected Problems COVID-19 (Acute) Hypoxia (Acute) - Physical Exam Vitals/I&O's: Vital Signs Temp Pulse Resp BP Pulse Ox 98.1 F 85 16 112/74 90 06/27/20 08:37 06/27/20 08:37 06/27/20 08:37 06/27/20 08:37 06/27/20 08:39 Oxygen Flow Rate (L/min) [ 4 AMBULATION with Oxygen] Oxygen Flow Rate (L/min) 4 Oxygen Delivery Method Nasal Cannula Weight: 135 lb 2.294 oz Body Mass Index (BMI) 23.1 Intake and Output for Last 24 Hours 06/25/20 06/26/20 06/27/20 23:59 23:59 23:59 Intake Total 1300 / 2100 2800 / 3100 600 / 600 Balance 1300 / 2100 2800 / 3100 600 / 600 General: Alert, Oriented x3, Cooperative, No apparent distress HEENT: Atraumatic, PERRLA, EOMI, Normocephalic Oral: Dry Mucosa Neck: Supple, No JVD Lungs: Normal air movement, No rhonchi, No wheeze, No rales, Diminished Cardiovascular: Regular rate, Regular Rhythm, Normal S1, Normal S2, No murmurs Abdomen: Soft, Non-Distended, No Hepato-splenomegaly, nontender Extremities: No edema, Capillary Refill Less than 3 Seconds Skin: No rashes, No breakdown Neurological: Neuro grossly intact, Sensory exam intact to light touch and pain Psych/Mental Status: Flat Affect Microbiology Past 72 Hours 06/25/20 12:55 Urine, Clean Catch Urine Culture - Preliminary Culture exhibits no growth. 06/25/20 19:37 Mucosa - Nasopharyngeal Respiratory Panel (PCR) - Final 06/25/20 12:55 Urine, Clean Catch Legionella Antigen - Final 06/25/20 12:55 Urine, Clean Catch Streptococcus pneumoniae Antigen (M - Final Laboratory Results 06/27/20 04:45: Sodium 140, Potassium 4.3, Chloride 108 H, Carbon Dioxide 25.0, Anion Gap 7, BUN 14, Creatinine 0.81, Estim Creat Clear Calc 116.74, Est GFR (MDRD) Af Amer 149, Est GFR (MDRD) Non-Af 123, BUN/Creatinine Ratio 17.3, Glucose 117 H, Calcium 7.6 L, Total Bilirubin 0.30, AST 33, ALT 39, Alkaline Phosphatase 138 H, Total Protein 5.1 L, Albumin 2.3 L, Globulin 2.8, Albumin/Globulin Ratio 0.8 L 06/27/20 07:47: WBC 2.5 L, RBC 5.10, Hgb 12.3 L, Hct 39.8 L, MCV 78.0 L, MCH 24.1 L, MCHC 30.9 L, RDW Std Deviation 54.4 H, RDW Coeff of [place] 19.9 H, Plt Count 180, MPV 10.8, Immature Gran % (Auto) 2.000 H, Neut % (Auto) 68.1, Lymph % (Auto) 21.9, [place] % (Auto) 7.6, Eos % (Auto) 0.0, Baso % (Auto) 0.4, Absolute Neuts (auto) 1.7 L, Absolute Lymphs (auto) 0.55 L, Nucleated RBC % 0, Diff Path Review May foll, Anisocytosis 1+ Discharge Activity: Return to Normal Activity Call your doctor if you observe: Fever of 101 or Higher, Shortness of breath, Dizziness, Fainting spells, Swelling in the ankles, Chest pain, Increased palpitations (irregular heartbeat) Home Medications: Medications to take at Discharge Sertraline HCl [Zoloft] 50 mg PO DAILY 03/05/15 Fluticasone 0.05% [Flonase Nasal [place]] 1 spray NASAL DAILY 09/24/17 Loratadine [Claritin] 10 mg PO DAILY 09/24/17 Ciprofloxacin [Cipro] 500 mg PO BID #14 tab 06/22/20 Omeprazole Magnesium [Prilosec Otc] 20 mg PO DAILY 06/22/20 Ondansetron [Zofran Odt] 4 mg PO Q8H PRN PRN #10 tab 06/22/20 metroNIDAZOLE [Flagyl] 500 mg PO Q6H #40 tab 06/22/20 Cholecalciferol (Vitamin D3) [D3-2000] 2,000 unit PO DAILY 06/25/20 Dexamethasone [Decadron] 6 mg PO DAILY #21 tab 06/27/20 Following Prescriptions Were Given to Patient: Dexamethasone [Decadron] 6 mg PO DAILY #21 tab Transmission Status: Received by [facility] Primary Care Physician: Calderon Tubbs MD [Primary Care Provider] - Please follow up with your Primary Care Physician in: 3-5 days Patient Instructions: Coronavirus Disease 2019 (COVID-19): Overview, Coronavirus Disease 2019 (COVID-19): Caring for Yourself or Others, ED Gastroenteritis, Bacterial (Adult) Disposition: Home Minutes spent on discharge:: 35 Patient Condition:: Stable Medical Necessity - Tobacco Use Smoking Status: Never smoker Meaningful Use Info Meaningful Use Diagnoses (Choose all that apply): None applicable Inpatient E&M: 77091 Disch Hosp
[2020-06-29 13:37] LABS: Pathologist Review Reviewed
== END 2020-06-27 14:15 | disposition home or self-care (01) | DRG 177 ==
LOC: ED 12:22 → MS2 14:25
PROVIDERS: Admitting Provider Family Medicine; Emergency Provider Emergency Medicine; PCP Family Medicine; Visit Provider Family Medicine
DX: U07.1 COVID-19 (principal); J12.82 Pneumonia due to coronavirus disease 2019; J96.01 Acute respiratory failure with hypoxia; A09 Infectious gastroenteritis and colitis, unspecified; E86.0 Dehydration; Q90.9 Down syndrome, unspecified; K21.9 Gastro-esophageal reflux disease without esophagitis; F32.9 Major depressive disorder, single episode, unspecified; F41.9 Anxiety disorder, unspecified; Z79.899 Other long term (current) drug therapy
CPT/HCPCS: 36415; 71045; 71275; 74177; 80048; 80053; 80076; 81002; 84484; 85025; 85027; 87086; 87449; 87633; 93005; 97802; 99285; J7030; J7040; Q9967; A4216; J0744

== ENCOUNTER 2020-07-09 14:14 | Emergency (ER) | payer OTHER, MEDICAID, SELFPAY ==
[2020-06-26 15:02] VITALS: BMI 23.1
[2020-07-09 14:16] VITALS: BP 135/76; PULSE 99; RESP 20; TEMP 36.2; O2SAT 98; BMI 22.9
--- NOTE | 2020-07-09 14:44 | VDUE_ITS ---
Reason For Study: Pain Left Proximal Left jugular vein is spontaneous, widely patent, phasic, with no intraluminal echogenicity noted. Left subclavian vein is spontaneous, widely patent, phasic, with no intraluminal echogenicity noted. Left Arm Left axillary vein is spontaneous, patent, phasic, competent, compressible and demonstrates augmentation. Left brachial vein is compressible. Superficial vein thromosis is noted in the left cephalic vein from the wrist to mid forearm. The basilic vein from above antecube to mid bicep is partially compressible. Left Lower Arm Left radial vein is compressible. Left ulnar vein is compressible. Patient Safety Prelim to [place]. Interpretation Summary There is no evidence of left upper extremity deep vein thrombosis. Superficial thrombophlebitis left cephalic vein from the wrist to the mid forearm and basilic vein of the distal upper arm Ordering Physician: Delio Aquino Referring Physician: Calderon Tubbs Performed By: Jacklyn Nava RVT ?
--- NOTE | 2020-07-09 14:50 | ED.VIS.GEN ---
History of Present Illness Chief Complaint: Upper Extremity Injury Informant: Patient, Family Narrative: Patient presents with left forearm pain. Symptoms have been present for several days and continuous. They note slight erythema on the dorsum of the forearm. Patient was recently hospitalized with COVID-19 and also with colitis. He had several IV sticks into that arm. No previous known clotting disorders. Breathing has been improving and he is only requiring oxygen at night. Past Medical History - Allergies and Home Meds Allergies/Adverse Reactions: Allergies Penicillins [PCN] Allergy (Unknown, Verified 07/09/20 14:15) Other MOTHER SEVERLY ALLERGIC TO PCN AND DOES NOT WANT SON TO HAVE Primary Care Physician: Calderon Tubbs MD [Primary Care Provider] - 1 Week if not improving Past Medical History: - - Down syndrome colitis Surgical History: cholecystectomy, - - Multiple ERCPs Lives: With Family Smoking Status: Current every day smoker Alcohol: None Drugs: None - Family History Maternal Family History: Reports: No pertinent history Paternal Family History: Reports: High Cholesterol Review of Systems General: Denies: Chills, Fever, Sweats Eyes: Denies: Visual changes - bilaterally, Diplopia ENT: Denies: Rhinorrhea, Sore throat Cardiovascular: Denies: Chest pain, Palpitations Respiratory: Denies: Dyspnea, Cough, Dyspnea on exertion Gastrointestinal: Denies: Abdominal pain, Nausea, Vomiting, Diarrhea, Melena, Hematochezia Genitourinary: Denies: Dysuria, Hematuria, Frequency Musculoskeletal: Reports: Extremity Pain. Denies: Back pain Skin: Denies: Rash, Wounds Neurological: Denies: Headache, Weakness, Numbness Physical Exam Vital Signs/Narrative: Vital Signs Temp Pulse Resp BP Pulse Ox 07/09/20 14:16 97.2 F L 99 20 H 135/76 H 98 Inital Vital Signs reviewed: Yes General: Well nourished, Well developed, No Acute Distress Head: Normocephalic, Atraumatic Eyes: Perrl, EOMI ENT: Moist mucous membranes, No rhinorrhea Neck: Supple, Nontender Cardiovascular: Regular rate, Regular rhythm, No murmurs Respiratory: No distress, CTA bilaterally, Chest nontender Abdomen: Soft, Nontender, Nondistended, Normal bowel sounds Back: Nontender, Normal Inspection Extremities: No edema, Tenderness - There is an area of tenderness with apparent superficial thrombophlebitis on the dorsum of the distal left forearm. Minimal erythema. Skin: Normal color, No rash Neurological: Alert, Oriented x3, Cranial nerves II-XII grossly intact, Normal Strength, Normal Sensation Psychological: Normal affect, Normal Mood Diagnostic/Tx/Re-eval - Medical Decision Making Duplex of the ultrasound was negative for DVT but positive for superficial thrombophlebitis. Home care discussed with parents and patient. They note understanding. ED Disposition - Plan for ED Patient: Disposition: Home or Assisted Living Diagnosis: Superficial thrombophlebitis of left upper extremity Instructions: ED Thrombophlebitis, Superficial Referrals: Calderon Tubbs MD [Primary Care Provider] - 1 Week if not improving
== END 2020-07-09 15:25 | disposition home or self-care (01) ==
PROVIDERS: Emergency Provider Emergency Medicine; PCP Family Medicine
DX: I80.8 Phlebitis and thrombophlebitis of other sites (principal); Q90.9 Down syndrome, unspecified; F17.200 Nicotine dependence, unspecified, uncomplicated; Z79.899 Other long term (current) drug therapy
CPT/HCPCS: 93971; 99282

== ENCOUNTER 2020-11-13 13:17 | Emergency (ER) | payer OTHER, MEDICAID, SELFPAY ==
[2020-11-13 13:18] VITALS: BP 116/56; PULSE 127; RESP 16; TEMP 36.4; O2SAT 100; BMI 25.4
--- NOTE | 2020-11-13 13:56 | EDS_ITS ---
HPI History of Present Illness Chief Complaint: Flank Pain Informant: patient and parent Narrative Narrative: 25-year-old male brought into the emergency department with his mom for evaluation abdominal pain. Patient woke this morning and ate a pretty good breakfast. Mom states however that he was restless throughout the night and usually that is an indication that something is bothering him. Around 11:00 this morning he began to have pain in his left side of his abdomen/left flank. He has a history of Down syndrome, esophageal and duodenal perforation, cholecystectomy, biliary duct stenting. He sees [facility] gastroenterology. Patient had a normal bowel movement this morning. He notes nausea but no vomiting. No fevers. He was diagnosed with a cholangitis in [place] but was discharged home on oral antibiotics. At that time mom has a copy of the CT that was performed. She states that while he had Covid he also was diagnosed with colitis and was hospitalized here. [facility] Medical History Autism Biliary stricture Down syndrome Esophagus perforation History of duodenal ulcer Perforation of duodenum Home Medications sertraline 50 mg PO DAILY 03/05/15 [History Last Taken 2 Days Ago ~06/23/20] loratadine [Allergy Relief (loratadine)] 10 mg PO DAILY 09/24/17 [History Last Taken 2 Days Ago ~06/23/20] ondansetron 4 mg PO Q8H PRN PRN #10 tab 06/22/20 [Rx Last Taken 06/24/20] cholecalciferol (vitamin D3) 4,000 unit PO DAILY 06/25/20 [History Last Taken 2 Days Ago ~06/23/20] doxycycline monohydrate [Oracea] 40 mg PO DAILY 11/13/20 [History Last Taken Unknown] omeprazole [Prilosec] 20 mg PO DAILY 11/13/20 [History Last Taken Unknown] Allergy/AdvReac Type Severity Reaction Status Date / Time Penicillins [PCN] Allergy Unknown Other Verified 11/13/20 13:20 Surgical History (Updated 11/13/20 @ 13:[address] Delio Aquino DO) Hx of cholecystectomy S/P ERCP Social History (Updated 11/13/20 @ 13:[address] Delio Aquino DO) Smoking Status: Never smoker substance use type: does not use ROS ROS ED Constitutional Constitutional ED: Denies chills or weight loss Eyes Eyes: Denies change in vision or diplopia ENT ENT ED: Reports rhinorrhea; Denies ear pain or sore throat Cardiovascular Cardiovascular: Denies chest pain, orthopnea, palpitations or racing heartbeat Respiratory/Chest Respiratory/Chest: Denies cough, dyspnea or orthopnea Gastrointestinal Gastrointestinal: Reports abdominal pain and nausea; Denies constipation, diarrhea or vomiting Genitourinary Genitourinary ED: Denies dysuria, hematuria or urinary frequency Musculoskeletal Musculoskeletal: Denies arthralgias or myalgias Integumentary Denies abscess or rash Neurologic Neurologic: Denies headache(s) or weakness Psychiatric Psychiatric: Denies anxiety, depression, suicidal ideation or suicidal thoughts Endocrine Endocrinology: Denies polydipsia, polyphagia or polyuria Allergic/Immunologic Allergic/Immunologic ED: Denies mouth swelling, tongue swelling or urticaria EXAM Physical Exam Const Vital Signs: 11/13/20 13:18 11/13/20 13:28 Temperature 97.6 F L Temperature Source Temporal Pulse Rate 127 H Respiratory Rate 16 Respiratory Effort Normal Respiratory Pattern Normal Blood Pressure 116/56 L Blood Pressure Mean 76 Pulse Ox 100 Oxygen Delivery Method Room Air Positive well nourished and well developed General Appearance ED: well developed HEENT Reports normocephalic, head/scalp atraumatic and moist mucous membranes Eyes PERRL and EOMs intact bilaterally Neck no lymphadenopathy, supple and no JVD Resp normal respiratory effort and clear to auscultation bilaterally Cardio regular rate, regular rhythm and no murmurs GI GI Narrative: Patient has diffuse tenderness to palpation. He seems to cry out in pain intermittently. At sometimes he appears very peaceful. Auscultation: normoactive bowel sounds Palpation: soft and tender Back/Spine no CVA tenderness and normal ROM Extremity normal to inspection General Extremety ED: Negative for edema General Extremity: Negative for edema Neuro oriented x3 and CN's II-XII intact bilaterally Sensorium / Orientation: alert Motor Exam: strength 5/5 throughout Psych mental status grossly normal Mood & Affect: Negative for depressed or tearful Skin no rashes or lesions noted and no wounds MDM MDM MDM Narrative Medical decision making narrative: Basic blood work and urinalysis were ordered. Patient received Zofran and morphine. CT then pelvis was ordered. Care the patient be turned over to the oncoming physician. Discharge Plan Triage Chief Complaint: Flank Pain ED Provider: Delio Aquino Dx/Rx/DC Orders Prescriptions: No Action sertraline 50 MG tablet 50 mg PO DAILY RF: 0 loratadine [Allergy Relief (loratadine)] 10 MG tablet 10 mg PO DAILY RF: 0 ondansetron 4 MG tablet 4 mg PO Q8H PRN PRN (Reason: Nausea) Qty: 10 RF: 0 cholecalciferol (vitamin D3) 50 MCG capsule 4,000 unit PO DAILY RF: 0 omeprazole [Prilosec] 20 mg Capsule,Delayed Release(Dr/Ec) 20 mg PO DAILY RF: 0 doxycycline monohydrate [Oracea] 40 mg Capsule,Ir - Delay Rel,Biphase 40 mg PO DAILY RF: 0 Primary Care Provider: Calderon Tubbs
[2020-11-13 15:17] VITALS: BP 110/63; PULSE 117; RESP 18; TEMP 37.4
[2020-11-13] MEDS: Morphine 2 MG/ML Syringe IV (15:17)
[2020-11-13] MEDS: Ondansetron 4 MG/2 ML Vial IV (15:17)
[2020-11-13] MEDS: 0.9% Normal Saline 1,000 ML 1000 ML IV (15:17)
[2020-11-13 15:21] LABS: Absolute Lymphocyte Count 0.23 X10^3/uL (0.83-4.51); Absolute Neutrophil Count 8.7 X10^3/uL (2.0-7.7); Basophil# 0.01 X10^3/uL; Basophil% 0.1 % (0-1); Eosinophil# 0.02 X10^3/uL; Eosinophils% 0.2 % (0-5); Hematocrit 33.4 % (40-54); Hemoglobin 9.7 g/dL (13.0-16.5); Lymphocyte # 0.23 X10^3/ul (0.83-4.51); Lymphocyte % 2.5 % (19-41); Mean Corpuscular Hgb 21.3 pg (27.0-32.0); Mean Corpuscular Volume 73.2 fL (80-94); Mean Platelet Vol. 10.4 fl (6.2-12.0); Monocyte% 3.2 % (0-10); NRBC Flagged by Analyzer 0 % (0-5); Neutrophil # 8.72 X10^3/uL (2.7-7.7); Neutrophil % 93.6 % (47-70); POSITIVE DIFFERENTIAL YES; Platelet Count 263 K/mm3 (150-450); RBC Distribution Width CV 18.3 % (11.6-14.6); RBC Distribution Width SD 47.2 fl (35.1-43.9); Red Blood Count 4.56 M/mm3 (4.6-6.2); White Blood Count 9.3 K/mm3 (4.4-11.0)
[2020-11-13 15:28] LABS: Differential Indicated SCAN CRITERIA MET
--- NOTE | 2020-11-13 15:35 | CT_ITS ---
STUDY: CT ABDOMEN AND PELVIS WITHOUT CONTRAST REASON FOR EXAM: Male, 25 years old. abdominal pain, left flank pain, Hx duodenitis October 23 2020. patient unable to follow breathing instructions, Downs syndrome RADIATION DOSAGE (If Supplied By Facility): CTDIvol = ( 6.29 ) mGy, DLP = ( 323.74 ) mGycm TECHNIQUE: Transaxial images were obtained from the dome of the diaphragm to the symphysis pubis with oral contrast, and without intravenous contrast. Sagittal and coronal images were reconstructed. Individualized dose optimization techniques were used for this CT. Mild motion artifact is present. COMPARISON: CT of abdomen and pelvis dated June 25, 2020 FINDINGS: The visualized lung bases are unremarkable. The visualized portions of the heart are within normal limits. Postcholecystectomy intrahepatic biliary gas and dilatation unchanged from the prior study. Previously seen small hemangioma in the anterior medial aspect of the left lobe of the liver is isointense to the surrounding parenchyma without contrast. The liver is otherwise unremarkable. Normal spleen. Normal pancreas. Normal bilateral adrenal glands. Normal right kidney. Normal left kidney. Motion artifact is present through the upper mid aspect of the bowel loops. No demonstrated abnormal dilatation or evidence of obstruction. No free air or free fluid is present. No significant thickening of the wall of the bowel loops demonstrated on the current study. A small diverticulum of the proximal sigmoid colon is present. The remaining colonic loops are unremarkable. Normal abdominal aorta. Normal inferior vena cava. Normal retroperitoneum. Normal urinary bladder. Normal abdominal wall. Normal osseous structures. CT/Abdomen/Pelvis without Cont IMPRESSION: 1. Motion artifact is present through the upper mid aspect of the bowel loops. No demonstrated abnormal dilatation or evidence of obstruction. No free air or free fluid is present. No significant thickening of the wall of the bowel loops demonstrated on the current study. 2. A small diverticulum of the proximal sigmoid colon is present. The remaining colonic loops are unremarkable. Electronically Signed: Henok Berkowitz MD at 17:01 EDT , Service support ,
[2020-11-13 15:41] LABS: AST(SGOT) 416 U/L (15-37); Alanine Aminotransfer ALT/SGPT 300 U/L (16-61); Albumin, Serum 3.2 g/dL (3.2-5.0); Alkaline Phosphatase 369 U/L (45-117); Anion Gap 8 (5-15); BUN 18 mg/dL (7-18); BUN/Creat Ratio 13.5 RATIO (10-20); Calcium,Total 8.5 mg/dL (8.5-10.1); Chloride 107 mmol/L (98-107); Creatinine, Serum 1.33 mg/dL (0.70-1.30); EST Glomerular Filtration Rate 69 mL/min (>60); Est Glom Filt Rate - Afr Amer 84 mL/min (>60); Estimated Creatinine Clearance 65.57 ml/min; Globulin 3.1 g/dL (2.2-4.2); Glucose 120 mg/dL (74-106); Lipase 189 U/L (73-393); Potassium 3.8 mmol/L (3.5-5.1); Protein, Total 6.3 g/dL (6.4-8.2); Sodium Level 139 mmol/L (136-145)
[2020-11-13 15:49] LABS: Differential Comment SCANNED
[2020-11-13 16:20] LABS: Bacteria 0 SEEN /hpf (None Seen); Mucous, Urine 0 SEEN /hpf (<or=2+); Red Blood Cells-Urine 0 SEEN /hpf (0-5); White Blood Cells 0 SEEN /hpf (0-5)
[2020-11-13 16:31] LABS: Glucose, Dipstick Normal (Normal); Ketone-Dipstick Negative (Negative); Leukocyte Esterase-Dipstick Negative /ul (Negative); Nitrite-Dipstick Negative (Negative); Occult Blood-Urine Negative /ul (Negative); Protein-Dipstick Negative (Negative); Urine Bilirubin Dipstick Negative (Negative); Urine Urobilinogen 1 mg/dl (Normal)
[2020-11-13 16:46] LABS: Color, Urine Yellow (Yellow); Urine Clarity Sl Cloudy (Clear)
[2020-11-13 16:51] LABS: Squamous Epithelial Cells - UA 0-5 SEEN /hpf (0-5)
[2020-11-13 16:52] LABS: Amorphous Sediment 1+ URATE
[2020-11-13 17:07] VITALS: TEMP 38.9
[2020-11-13] MEDS: Acetaminophen 325 MG Tablet 650 MG PO (17:16)
[2020-11-13 17:17] VITALS: BP 112/65; PULSE 120; RESP 18
--- NOTE | 2020-11-13 17:37 | RAD_ITS ---
STUDY: X-RAY CHEST REASON FOR EXAM: Male, 25 years old. cough TECHNIQUE: Single AP portable view of the chest. COMPARISON: June 25, 2020 FINDINGS: The lungs are clear and expanded. There is no demonstrated pleural abnormality. Normal size heart. Normal mediastinum and cleo. Normal visualized pulmonary arteries. Normal visualized aortic arch and descending thoracic aorta. Normal visualized thoracic spine. Normal visualized ribs, clavicles, and shoulders. There is no demonstrated abnormality of the visualized soft tissue structures of the upper abdomen. RAD/Chest 1 View (Portable) IMPRESSION: Normal x-ray examination of the chest. Electronically Signed: Henok Berkowitz MD at 19:34 EDT , Service support ,
[2020-11-13 18:36] VITALS: TEMP 38.1
--- NOTE | 2020-11-13 19:46 | EDS_ITS ---
HPI HPI - GI History of Present Illness Chief Complaint: Flank Pain Detail of Chief Complaint: Started today with left flank and abdomen pain Informant: patient and parent Narrative Narrative: Care of patient turned over to me awaiting lab results and CT results. Patient has history of Down's and presented with left flank and abdomen pain today. Patient [place] 23 [place] of state and had an episode of fever and abdominal pain and they thought he might have cholangitis however no intervention was undertaken and patient was on antibiotics and symptoms resolved. 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 Patient on my evaluation is denying any abdominal pain currently. Mother states that patient has had a little bit of a head cold for the last couple of days. Prior similar symptoms: No PFSH PFSH Medical History (Updated 11/13/20 @ 19:[address] Jazmyn Steen DO) Autism Biliary stricture Down syndrome Esophagus perforation History of duodenal ulcer Perforation of duodenum Home Medications sertraline 50 mg PO DAILY 03/05/15 [History Last Taken 2 Days Ago ~06/23/20] loratadine [Allergy Relief (loratadine)] 10 mg PO DAILY 09/24/17 [History Last Taken 2 Days Ago ~06/23/20] ondansetron 4 mg PO Q8H PRN PRN #10 tab 06/22/20 [Rx Last Taken 06/24/20] cholecalciferol (vitamin D3) 4,000 unit PO DAILY 06/25/20 [History Last Taken 2 Days Ago ~06/23/20] doxycycline monohydrate [Oracea] 40 mg PO DAILY 11/13/20 [History Last Taken Unknown] omeprazole [Prilosec] 20 mg PO DAILY 11/13/20 [History Last Taken Unknown] Allergy/AdvReac Type Severity Reaction Status Date / Time Penicillins [PCN] Allergy Unknown Other Verified 11/13/20 13:20 Surgical History (Updated 11/13/20 @ 13:[address] Delio Aquino DO) Hx of cholecystectomy S/P ERCP Social History (Updated 11/13/20 @ 13:[address] Delio Aquino DO) Smoking Status: Never smoker substance use type: does not use EXAM Physical Exam Const Vital Signs: 11/13/20 13:18 11/13/20 13:28 11/13/20 15:17 Temperature 97.6 F L 99.3 F H Temperature Source Temporal Temporal Pulse Rate 127 H 117 H Respiratory Rate 16 18 Respiratory Effort Normal Respiratory Pattern Normal Blood Pressure 116/56 L 110/63 Blood Pressure Mean 76 78 Pulse Ox 100 Oxygen Delivery Method Room Air 11/13/20 17:07 11/13/20 17:17 11/13/20 18:36 Temperature 102.1 F H 100.6 F H Temperature Source Temporal Temporal Pulse Rate 120 H Respiratory Rate 18 Respiratory Effort Respiratory Pattern Blood Pressure 112/65 Blood Pressure Mean 80 Pulse Ox Oxygen Delivery Method Positive well nourished and well developed General Appearance ED: well developed and NAD HEENT Reports TM's clear and moist mucous membranes normocephalic and atraumatic; Negative for trauma or tenderness Tympanic Membrane ED: Yes TM's clear Eyes PERRL and EOMs intact bilaterally General Eye ED: Negative for pale conjunctiva or scleral icterus Neck no lymphadenopathy, supple and no JVD General: Negative for tenderness Chest Wall inspection of chest normal and palpation of chest normal Chest: Negative for tenderness Resp normal respiratory effort and clear to auscultation bilaterally Effort and Inspection: Negative for respiratory distress or pain with movement Auscultation: Negative for rhonchi, wheezes or diminished lung sounds Cardio regular rate, regular rhythm, S1 normal heart sound, S2 normal heart sound and no murmurs Peripheral Pulses: pulses 2+ throughout GI normal to inspection, nondistended, normoactive bowel sounds, soft to palpation, non-tender, non-distended and no masses Back/Spine no CVA tenderness and no thoracic nor lumbar tenderness Extremity normal to inspection General Extremety ED: Negative for edema General Extremity: Negative for edema Neuro oriented x3, CN's II-XII intact bilaterally, no sensory deficits noted and gait normal Sensorium / Orientation: awake, alert, oriented to person, oriented to place and oriented to time Motor Exam: strength 5/5 throughout and strength abnormal Psych mental status grossly normal Skin no rashes or lesions noted and no wounds MDM MDM MDM Narrative Medical decision making narrative: Patient had significant work-up in the emergency department and was essentially unremarkable. He is CT scan of the abdomen pelvis with p.o. contrast was unremarkable. On repeat examination he has [place] no abdominal pain and no pain over the right lower quadrant or right upper quadrant. He has no pain over the left lower quadrant or left upper quadrant. Patient did develop a fever while in the department and received Tylenol. I did check a strep screen which was negative and also a chest x-ray which was unremarkable. Lab Data Labs: Laboratory Results - last 24 hr 11/13/20 11/13/20 11/13/20 15:05 15:05 16:08 WBC 9.3 RBC 4.56 L Hgb 9.7 L Hct 33.4 L MCV 73.2 L MCH 21.3 L MCHC 29.0 L RDW Std Deviation 47.2 H RDW Coeff of Vidal 18.3 H Plt Count 263 MPV 10.4 Immature Gran % (Auto) 0.400 Neut % (Auto) 93.6 H Lymph % (Auto) 2.5 L Real % (Auto) 3.2 Eos % (Auto) 0.2 Baso % (Auto) 0.1 Absolute Neuts (auto) 8.7 H Absolute Lymphs (auto) 0.23 L Nucleated RBC % 0 Differential Comment SCANNED Sodium 139 Potassium 3.8 Chloride 107 Carbon Dioxide 24.0 Anion Gap 8 BUN 18 Creatinine 1.33 H Estim Creat Clear Calc 65.57 Est GFR (MDRD) Af Amer 84 Est GFR (MDRD) Non-Af 69 BUN/Creatinine Ratio 13.5 Glucose 120 H Calcium 8.5 Total Bilirubin 1.30 H AST 416 H ALT 300 H Alkaline Phosphatase 369 H Total Protein 6.3 L Albumin 3.2 Globulin 3.1 Albumin/Globulin Ratio 1.0 Lipase 189 Urine Color Yellow Urine Clarity Sl Cloudy Urine pH 6.0 Ur Specific [place] 1.020 Urine Protein Negative Urine Glucose (UA) Normal Urine Ketones Negative Urine Occult Blood Negative Urine Nitrite Negative Urine Bilirubin Negative Urine Urobilinogen 1 H Ur Leukocyte Esterase Negative Urine RBC 0 SEEN Urine WBC 0 SEEN Ur Squamous Epith Cells 0-5 SEEN Amorphous Sediment 1+ URATE Urine Bacteria 0 SEEN Urine Mucus 0 SEEN Radiography Diagnostic Testing: Radiology Impression Abdomen/Pelvis CT 11/13/20 15:35 IMPRESSION: 1. Motion artifact is present through the upper mid aspect of the bowel loops. No demonstrated abnormal dilatation or evidence of obstruction. No free air or free fluid is present. No significant thickening of the wall of the bowel loops demonstrated on the current study. 2. A small diverticulum of the proximal sigmoid colon is present. The remaining colonic loops are unremarkable. Electronically Signed: Henok Berkowitz MD at 17:01 EDT , Service support , Chest X-Ray 11/13/20 17:37 IMPRESSION: Normal x-ray examination of the chest. Electronically Signed: Henok Berkowitz MD at 19:34 EDT , Service support , Discharge Plan Triage Chief Complaint: Flank Pain ED Provider: Jazmyn Steen Dx/Rx/DC Orders Clinical Impression: Abdominal pain of unknown etiology, Fever Instructions: Abdominal Pain, ED FUO Adult Prescriptions: No Action sertraline 50 MG tablet 50 mg PO DAILY RF: 0 loratadine [Allergy Relief (loratadine)] 10 MG tablet 10 mg PO DAILY RF: 0 ondansetron 4 MG tablet 4 mg PO Q8H PRN PRN (Reason: Nausea) Qty: 10 RF: 0 cholecalciferol (vitamin D3) 50 MCG capsule 4,000 unit PO DAILY RF: 0 omeprazole [Prilosec] 20 mg Capsule,Delayed Release(Dr/Ec) 20 mg PO DAILY RF: 0 doxycycline monohydrate [Oracea] 40 mg Capsule,Ir - Delay Rel,Biphase 40 mg PO DAILY RF: 0 Primary Care Provider: Calderon Tubbs Referrals: Calderon Tubbs MD [Primary Care Provider] - 3-5 Days Disposition Disposition: Home, Self Care
[2020-11-13 20:14] VITALS: BP 106/56; PULSE 103; RESP 16
== END 2020-11-13 20:15 | disposition home or self-care (01) ==
PROVIDERS: Emergency Medicine; Emergency Provider Emergency Medicine; PCP Family Medicine
DX: R10.9 Unspecified abdominal pain (principal); R11.0 Nausea; Q90.9 Down syndrome, unspecified; F84.0 Autistic disorder; Z79.899 Other long term (current) drug therapy; Z87.11 Personal history of peptic ulcer disease; Z86.16 Personal history of COVID-19
CPT/HCPCS: 71045; 74176; 80053; 81001; 83690; 85025; 87880; 96361; 96374; 96375; 99285; J7030; A4216; J2405

== ENCOUNTER → 2023-03-13 | Outpatient (CLI) | payer MEDICARE, MEDICAID, SELFPAY ==
[2023-03-15 21:07] LABS: Alternaria tenuis <0.10 kU/L (Class 0); Ash, White <0.10 kU/L (Class 0); Aspergillus fumigatus <0.10 kU/L (Class 0); Bermuda Grass <0.10 kU/L (Class 0); Birch <0.10 kU/L (Class 0); Black Walnut <0.10 kU/L (Class 0); Cat Hair / Dander,Stand <0.10 kU/L (Class 0); Cedar, Mountain <0.10 kU/L (Class 0); Chicken <0.10 kU/L (Class 0); Cladosporium herbarum <0.10 kU/L (Class 0); Clam <0.10 kU/L (Class 0); Cockroach, American <0.10 kU/L (Class 0); Codfish <0.10 kU/L (Class 0); Corn <0.10 kU/L (Class 0); Cottonwood <0.10 kU/L (Class 0); D farinae Mite <0.10 kU/L (Class 0); D pteronyssinus <0.10 kU/L (Class 0); Dog Epithelia <0.10 kU/L (Class 0); Egg, White <0.10 kU/L (Class 0); Egg, Whole <0.10 kU/L (Class 0); Elm, American White <0.10 kU/L (Class 0); Immunoglobulin E < 2 IU/mL (6-495); Maple/Box Elder <0.10 kU/L (Class 0); Milk (Cow) <0.10 kU/L (Class 0); Mouse Urine <0.10 kU/L (Class 0); Mulberry, White <0.10 kU/L (Class 0); Oak, White <0.10 kU/L (Class 0); Pea <0.10 kU/L (Class 0); Peach <0.10 kU/L (Class 0); Peanut <0.10 kU/L (Class 0); Pecan <0.10 kU/L (Class 0); Penicillium Notatum <0.10 kU/L (Class 0); Pigweed, Rough <0.10 kU/L (Class 0); Potato, White <0.10 kU/L (Class 0); Ragweed, Short/Common <0.10 kU/L (Class 0); Rice <0.10 kU/L (Class 0); Russian Thistle <0.10 kU/L (Class 0); SCALLOP <0.10 kU/L (Class 0); SESAME SEED <0.10 kU/L (Class 0); Salmon <0.10 kU/L (Class 0); Sheep Sorrel <0.10 kU/L (Class 0); Shrimp <0.10 kU/L (Class 0); Soybean <0.10 kU/L (Class 0); Sycamore, American <0.10 kU/L (Class 0); Timothy Grass <0.10 kU/L (Class 0); Turkey <0.10 kU/L (Class 0); Walnut, (Food) <0.10 kU/L (Class 0); Wheat <0.10 kU/L (Class 0)
== END | disposition home or self-care (01) ==
LOC: LAB 11:30
PROVIDERS: PCP Family Medicine; Referring Provider Otolaryngology; Visit Provider Otolaryngology
DX: T78.40XA Allergy, unspecified, initial encounter (principal); X58.XXXA Exposure to other specified factors, initial encounter
CPT/HCPCS: 36415; 82785; 86003

== ENCOUNTER 2024-01-08 17:14 | Observation (INO) | payer MEDICARE, MEDICAID, SELFPAY ==
[2024-01-08] VITALS (25 sets, daily range): BP systolic 92–151; BP diastolic 54–133; PULSE 78–117; RESP 14–35; TEMP 36.1–36.8; O2SAT 77–99; BMI 24.5; BMI 24.0
--- NOTE | 2024-01-08 | GASB_PTH ---
PATIENT: NAKUL GARCIA LOC: ICU U#:[id number] AGE/SX: 28/M ROOM: [place] [address] RE01/08/[address]: Dr. Lucia Gutierrez MD : 1995 BED: 1 DIS: 01/09/2024 SPEC #: [id number] RECD: 01/09/24 13:17 STATUS: KEHINDE REQ #: [id number] EVELIN: 01/08/24 00:[address]: Luis Angel Humphreys DEPT: SURGICAL PATHOLOGY RECD BY: Hardik Cardenas ENTERED: 01/09/24 13:17 SP TYPE: Gastric Bx OTHR DR: MD Dr. Trever Rice MD Dr. Rahsaan Friend, DO Dr. William Lago, MD Tissues: A - Gastric mucous membrane B - Esophageal mucous membrane Procedures: Special Stain Group I Surgery Specimen Level IV Alcian Blue/PAS (control) Comments: @ Ordering doctor for SUIV edited from to @ vinita MORSE at 01/09/24 0623 @ Submitting doctor edited from to @ vinita MORSE at 01/09/24 1336 HEADER OPERATION: EGD, removal of foreign body, biopsy PRE-OP DIAGNOSIS: Difficulty swallowing, foreign body TISSUE SUBMITTED: A- Gastroesophageal junction biopsy, B- Distal esophagus MICROSCOPIC DIAGNOSIS A. Gastroesophageal junction mass, biopsy: Fragments of gastric mucosa with mild chronic inflammation and benign hyperplastic change. No evidence of goblet cell metaplasia. See comment. B. Distal esophagus, biopsy: Gastroesophageal mucosa with mild chronic inflammation. No evidence of goblet cell metaplasia. See comment. AM/mr 01/10/2024 COMMENT A. Sections show hyperplastic mucosal change with associated inflammation suggestive of hyperplastic polyp/inflammatory polyp with hyperplastic change. Clinical correlation is suggested. A, B. Alcian blue/PAS stain with matched control supports the above diagnosis. Case has been reviewed in consultation with Dr. Jolley who concurs with the above diagnosis. IDC:SJ MICROSCOPIC DESCRIPTION Slides are reviewed. GROSS DESCRIPTION A. Received in fixative is one container labeled with the patient's name and designated GE junction mass biopsy. The specimen consists of multiple irregular fragments of light canales soft tissue that in aggregate measure 1.5 x 0.3 x 0.1 cm. The specimen is totally submitted in one cassette. B. Received in fixative is one container labeled with the patient's name and designated Distal esophagus biopsy. The specimen consists of multiple irregular fragments of light canales soft tissue that in aggregate measure 1.2 x 0.3 x 0.1 cm. The specimen is totally submitted in one cassette. 01/09/2024 TC:3 CPT:04435g1,75293h5
--- NOTE | 2024-01-08 18:04 | EX.ED.DYSGE1 ---
HPI History of Present Illness Chief Complaint: Allergic Reaction Detail of Chief Complaint: Difficulty swallowing Informant: patient Narrative Narrative: Patient presents the emergency department with difficulty swallowing. Patient apparently was eating dinner around 4 PM when he started to hiccup and then could not swallow secretions and was foaming at the mouth. Patient still cannot swallow. He has had some episodes in the past where he has had a hard time swallowing but never to this extent where he would need an intervention. Patient has history of an annular pancreas and history of Down syndrome and autism. No recent illness. [facility] Medical History (Updated 01/08/24 @ 18:[address] Jazmyn Steen, DO) Perforation of duodenum Esophagus perforation History of duodenal ulcer Biliary stricture Down syndrome Autism Home Medications ?Medication ?Instructions ?Recorded ?Last Taken ?Type sertraline 50 mg tablet 50 mg PO DAILY 03/05/15 2 Days Ago History ~06/23/20 loratadine 10 mg tablet (Allergy 10 mg PO DAILY 09/24/17 2 Days Ago History Relief (loratadine)) ~06/23/20 ondansetron 4 mg disintegrating 4 mg PO Q8H PRN PRN Nausea #10 tabs 06/22/20 06/24/20 Rx tablet cholecalciferol (vitamin D3) 50 4,000 unit PO DAILY SUPPLEMENT 06/25/20 2 Days Ago History mcg (2,000 unit) capsule ~06/23/20 omeprazole 20 mg capsule,delayed 20 mg PO DAILY 11/13/20 Unknown History release cyanocobalamin (vitamin B-12) 1,000 mcg IM QMONTH 01/08/24 Unknown History 1,000 mcg/mL injection solution doxycycline monohydrate 50 mg 50 mg PO DAILY 01/08/24 Unknown History tablet omeprazole 40 mg capsule,delayed 40 mg PO BID #60 caps 01/08/24 Unknown Rx release Allergy/AdvReac Type Severity Reaction Status Date / Time Penicillins (PCN) Allergy Unknown Other Verified 01/08/24 17:15 Surgical History Hx of cholecystectomy S/P ERCP Social History (Updated 11/13/20 @ 13:[address] Delio Aquino, DO) Smoking Status: Never smoker substance use type: does not use ROS ROS ED Review of Systems ROS Unobtainable: other Constitutional Constitutional ED: Reports lethargy; Denies chills, fever(s), sweats or weight loss Eyes Eyes: Denies blurry vision, change in vision or diplopia ENT ENT ED: Denies rhinorrhea or sore throat Cardiovascular Cardiovascular: Denies chest pain, orthopnea or racing heartbeat Respiratory/Chest Respiratory/Chest: Denies cough, dyspnea, dyspnea on exertion, orthopnea or sputum Gastrointestinal Gastrointestinal: Reports other Details: Difficulty swallowing secretions ; Denies abdominal pain, diarrhea, nausea or vomiting Genitourinary Genitourinary ED: Denies dysuria, hematuria or urinary frequency Musculoskeletal Musculoskeletal: Denies arthralgias, back pain, myalgias or neck pain Integumentary Denies abscess, Abrasions or rash Neurologic Neurologic: Denies headache(s) or weakness Psychiatric Psychiatric: Denies anxiety, depression or suicidal thoughts Endocrine Endocrinology: Denies polydipsia, polyphagia or polyuria Hematologic/Lymphatic Hematologic/Lymphatic: Denies easy bleeding, easy bruising or lymphadenopathy Allergic/Immunologic Allergic/Immunologic ED: Denies mouth swelling, tongue swelling or urticaria EXAM Physical Exam Narrative Exam Narrative: Sitting up in bed as I enter the room spitting into an emesis bag. Const Vital Signs: 01/08/24 17:15 01/08/24 18:43 01/08/24 18:44 Temperature 98.2 F 97.8 F 97.9 F Temperature Source Temporal Temporal Pulse Rate 78 86 78 Respiratory Rate 16 16 16 Respiratory Pattern Blood Pressure 108/79 110/80 110/80 Blood Pressure Mean 88 90 90 Blood Pressure Source Monitor Blood Pressure Position Supine Blood Pressure Location Right Arm Baseline BP Pulse Ox 99 98 98 Oxygen Delivery Method Room Air Room Air Oxygen Flow Rate (L/min) 01/08/24 19:18 01/08/24 20:03 01/08/24 20:05 Temperature 97.9 F 98.3 F Temperature Source Temporal Pulse Rate 78 115 H 115 H Respiratory Rate 16 16 20 H Respiratory Pattern Normal Blood Pressure 110/80 133/127 H 133/127 H Blood Pressure Mean 129 129 Blood Pressure Source Monitor Monitor Blood Pressure Position Semi-Fowlers Semi-Fowlers Blood Pressure Location Right Arm Baseline BP 110/80 110/80 Pulse Ox 98 77 86 Oxygen Delivery Method Room Air Nasal Cannula Oxygen Flow Rate (L/min) 4 01/08/24 20:10 01/08/24 20:11 01/08/24 20:15 Temperature 97 F L Temperature Source Pulse Rate 117 H 117 H 110 H Respiratory Rate 20 H 22 H 20 H Respiratory Pattern Blood Pressure 151/133 H 131/120 H 110/62 Blood Pressure Mean 139 78 Blood Pressure Source Monitor Monitor Blood Pressure Position Semi-Fowlers Semi-Fowlers Blood Pressure Location Right Arm Right Arm Baseline BP 110/80 110/80 Pulse Ox 86 92 91 Oxygen Delivery Method Simple Mask Venturi Mask Non-Rebreather Oxygen Flow Rate (L/min) 10 10 10 01/08/24 20:30 01/08/24 20:35 01/08/24 20:45 Temperature Temperature Source Pulse Rate 89 94 93 Respiratory Rate 24 H 20 H 30 H Respiratory Pattern Blood Pressure 105/54 L 100/77 92/63 Blood Pressure Mean 71 84 72 Blood Pressure Source Monitor Monitor Monitor Blood Pressure Position Semi-Fowlers Semi-Fowlers Semi-Fowlers Blood Pressure Location Right Arm Right Arm Baseline BP 110/80 110/80 110/80 Pulse Ox 88 86 Oxygen Delivery Method Nasal Cannula Nasal Cannula Nasal Cannula Oxygen Flow Rate (L/min) 4 4 4 01/08/24 20:55 01/08/24 21:20 01/08/24 21:32 Temperature 97.9 F Temperature Source Temporal Pulse Rate 97 Respiratory Rate 26 H Respiratory Pattern Blood Pressure 103/72 Blood Pressure Mean 82 Blood Pressure Source Blood Pressure Position Blood Pressure Location Baseline BP 110/80 110/80 110/80 Pulse Ox 86 91 89 Oxygen Delivery Method Nasal Cannula Nasal Cannula Non-Rebreather Oxygen Flow Rate (L/min) 4 4 10 01/08/24 21:35 01/08/24 21:47 01/08/24 22:00 Temperature Temperature Source Pulse Rate 96 86 91 Respiratory Rate 26 H 28 H 35 H Respiratory Pattern Blood Pressure 118/102 H 111/84 H 118/81 H Blood Pressure Mean 107 93 93 Blood Pressure Source Monitor Monitor Monitor Blood Pressure Position Semi-Fowlers Semi-Fowlers Semi-Fowlers Blood Pressure Location Left Arm Left Arm Left Arm Baseline BP 110/80 110/80 110/80 Pulse Ox 96 95 94 Oxygen Delivery Method Non-Rebreather CPAP CPAP Oxygen Flow Rate (L/min) Positive well nourished and well developed General Appearance ED: well developed and NAD HEENT Reports TM's clear and moist mucous membranes normocephalic and atraumatic; Negative for trauma or tenderness Tympanic Membrane ED: Yes TM's clear Eyes PERRL and EOMs intact bilaterally General Eye ED: Negative for pale conjunctiva or scleral icterus Neck no lymphadenopathy, supple and no JVD General: Negative for tenderness Chest Wall inspection of chest normal and palpation of chest normal Chest: Negative for tenderness Resp normal respiratory effort and clear to auscultation bilaterally Effort and Inspection: Negative for respiratory distress or pain with movement Auscultation: Negative for rhonchi, wheezes or diminished lung sounds Cardio regular rate, regular rhythm, S1 normal heart sound, S2 normal heart sound and no murmurs Peripheral Pulses: pulses 2+ throughout GI normal to inspection, nondistended, normoactive bowel sounds, soft to palpation, non-tender, non-distended and no masses Back/Spine no CVA tenderness and no thoracic nor lumbar tenderness Extremity normal to inspection General Extremety ED: Negative for edema General Extremity: Negative for edema Neuro oriented x3, CN's II-XII intact bilaterally, no sensory deficits noted and gait normal Sensorium / Orientation: awake, alert, oriented to person, oriented to place and oriented to time Motor Exam: strength 5/5 throughout and strength abnormal Psych mental status grossly normal Skin no rashes or lesions noted and no wounds MDM MDM MDM Narrative Medical decision making narrative: Patient presents with what sounds like an esophageal impaction. Clinically looks well. Unable to swallow his own spit. I did have him attempt to try to swallow [employer] which she was unable to do and started spitting up. IV line will be ordered. He will be ordered a milligram of glucagon. Will discuss with GI as I suspect he will likely require EGD intervention for this impaction of esophagus foreign body/food bolus. Discussed case with information technology intern Dr. Humphreys who will present to the emergency department to take patient to endoscopy for EGD and definitive care. Radiography Diagnostic Testing: Clinical Impression(s) from Imaging Studies Chest X-Ray 01/08/24 21:45 IMPRESSION: Patchy pulmonary opacities mostly in the perihilar and basilar lungs suggestive of pulmonary edema and/or pneumonia. Electronically Signed: Ricky East DO at 22:53 EDT , Discharge Plan Dx/Rx/DC Orders Clinical Impression: Food impaction of esophagus Disposition Disposition: Acute Care Hospital [facility] Discharge Date/Time: 01/08/24 19:26
[2024-01-08] MEDS: Glucagon 1 MG/ML Syringe IV (18:40)
--- NOTE | 2024-01-08 19:14 | PCM.PRE.AN2 ---
ASA Classification* ASA Classification ASA Classification: 2 and E Assessment & Plan Anesthesia* Anesthesia Assessment Anesthesia Assessment: Discussed sedation and/or anesthesia options, risks, benefits, and alternatives with patient/parents/legal guardian/POA. Questions invited. The patient/parents/legal guardian/POA seems to understand and agrees to proceed with anesthesia plan. Reviewed the physical assessment, medical history, allergy history and patient home medications list prior to surgery/procedure/anesthetic and documented any changes. Performed airway and anesthesia risk assessments. Anesthesia Type Anesthesia Type: MAC History Source History Obtained from:: Chart Anesthesia Focused Assessment* Temperature: 97.9 F Pulse Rate: 78 Blood Pressure: 110/80 Respiratory Rate: 16 Pulse Ox: 98 Airway Assessment Mouth opens: >3 cm Mallampati Score: II Teeth Condition: Intact Neck Range of motion (ROM): Full ROM Focused Labs Anesthesia Preop lab: CBC WBC 9.3 K/mm3 (4.4-11.0) 11/13/20 15:05 RBC 4.56 M/mm3 (4.6-6.2) L 11/13/20 15:05 Hgb 9.7 g/dL (13.0-16.5) L 11/13/20 15:05 Hct 33.4 % (40-54) L 11/13/20 15:05 Plt Count 263 K/mm3 (150-450) 11/13/20 15:05 CHEMISTRY Potassium 3.8 mmol/L (3.5-5.1) 11/13/20 15:05 Sodium 139 mmol/L (136-145) 11/13/20 15:05 BUN 18 mg/dL (7-18) 11/13/20 15:05 Creatinine 1.33 mg/dL (0.70-1.30) H 11/13/20 15:05 Glucose 120 mg/dL (74-106) H 11/13/20 15:05 COAG Pre-Assessment Diagnosis/Proposed Procedure Planned Operative Procedure(s): EGD, foreign body removal Anesthesia History Anesthesia History - crop picker: Anesthesia History - crop picker Hx Hospitalization No 07/09/20 14:49 Any Problems With Anesthesia No 01/08/24 18:44 Cholinesterase deficiency No 01/08/24 18:44 You/Your Family Experience No 01/08/24 18:44 fever (hyperthermia) with Relationship Recent Exposure to Contagious No 01/08/24 18:44 Disease Does patient have nerve No 01/08/24 18:44 stimulator Patient instructed to have No 01/08/24 18:44 device shut off --Does patient have Pacemaker No 01/08/24 18:44 or ICD? When Was Last Pacemaker Check QUESTION #4 FULL TEXT: You/Your Family Experience fever (hyperthermia) with Anesthesia Any additional information?: No Last Oral Intake Last Oral intake: Last Oral Intake NPO since 16:00 01/08/24 18:44 Meds taken in AM with sips of water? Meds patient instructed to take am of surgery Any additional information?: No PONV PONV - crop picker: PONV - crop picker Female HX of Motion Sickness HX of N/V After Surgery Non-Smoker Duration of Surgery greater than 60 minutes Number of Risk Factors PONV Score Any additional information?: No Height & Weight Height & Weight: Anesthesia: Height & Weight Height 5 ft 4 in 01/08/24 18:44 Weight: 64.818 kg 01/08/24 18:44 Body Mass Index (BMI) 24.5 01/08/24 18:44 Respiratory Assessment Respiratory Assessment - crop picker: Respiratory Tract Infection Hx - crop picker Hx Respiratory Tract Infection No 01/08/24 18:44 Any additional information?: No STOP Sleep Apnea STOP Sleep Apnea - crop picker: STOP Sleep Apnea - crop picker Hx Hypertension No 01/08/24 18:44 Hx Sleep Apnea No 01/08/24 18:44 CPAP No 06/25/20 15:08 BIPAP No 06/25/20 15:08 Do you snore loudly (louder No 01/08/24 18:44 than talking or can be heard Do you often feel tired/ No 01/08/24 18:44 fatigued/ sleepy during daytime? Has anyone observed you stop No 01/08/24 18:44 breathing during sleep? STOP Results Negative 01/08/24 18:44 QUESTION #5 FULL TEXT : Do you snore loudly (louder than talking or can be heard through closed doors)? Any additional information?: No Tobacco Use History Tobacco Use History - crop picker: Tobacco Use History - crop picker Tobacco Use Smoking Status Never smoker 01/08/24 17:37 Hx Tobacco Use Yes 07/09/20 14:49 Years Smoking Packs Smoked per Day Smoking Cessation Date was within the last 15 years Hx Smoking Cessation Date Hx Smoking Cessation Counseling Any additional information?: No Hematologic Medial History Hematologic Hx - crop picker: Hematologic Medical Hx - biscuit packer Hx of Blood Transfusion Hx of Transfusion in last 3 Months Date of Last Transfusion (if within last 3 months) Ever experience any problems with transfusion(s)? Specify any problems Hx of Preganancy in last 3 Months Nurse Filling Out Transfusion & Questions: Date: Time: Patient unable to answer at this time (ie. confused, unrespo Any additional information?: No /Reproduction History /Reproductive History - crop picker: /Reproductive Hx- crop picker Hx Now No 01/08/24 18:44 Gestational Age (in weeks): EDC: Hx Hx Para Hx Section SAB Any additional information?: No [facility] Medical History (Updated 01/08/24 @ 18:[address] Jazmyn Steen, DO) Perforation of duodenum Esophagus perforation History of duodenal ulcer Biliary stricture Down syndrome Autism Home Medications ?Medication ?Instructions ?Recorded ?Last Taken ?Type sertraline 50 mg tablet 50 mg PO DAILY 03/05/15 2 Days Ago History ~06/23/20 loratadine 10 mg tablet (Allergy 10 mg PO DAILY 09/24/17 2 Days Ago History Relief (loratadine)) ~06/23/20 ondansetron 4 mg disintegrating 4 mg PO Q8H PRN PRN Nausea #10 tabs 06/22/20 06/24/20 Rx tablet cholecalciferol (vitamin D3) 50 4,000 unit PO DAILY SUPPLEMENT 06/25/20 2 Days Ago History mcg (2,000 unit) capsule ~06/23/20 omeprazole 20 mg capsule,delayed 20 mg PO DAILY 11/13/20 Unknown History release cyanocobalamin (vitamin B-12) 1,000 mcg IM QMONTH 01/08/24 Unknown History 1,000 mcg/mL injection solution doxycycline monohydrate 50 mg 50 mg PO DAILY 01/08/24 Unknown History tablet Allergy/AdvReac Type Severity Reaction Status Date / Time Penicillins (PCN) Allergy Unknown Other Verified 01/08/24 17:15 Surgical History Hx of cholecystectomy S/P ERCP Social History (Updated 11/13/20 @ 13:[address] Delio Aquino, DO) Smoking Status: Never smoker substance use type: does not use Review of Systems (Anesthesia) ROS Narrative System reviewed and no additional complaints, except as documented.
--- NOTE | 2024-01-08 19:15 | PCM.HP.STD ---
HPI - General General Date of Admission: 01/08/24 Date of Service: 01/08/24 Chief Complaint: food impaction HPI Narrative NAKUL GARCIA, is a 28 M who presents to the emergency department with difficulty swallowing. Patient apparently was eating dinner around 4 PM when he started to hiccup and then could not swallow secretions and was foaming at the mouth. Patient still cannot swallow. He has had some episodes in the past where he has had a hard time swallowing but never to this extent where he would need an intervention. He has a history of Down syndrome, esophageal and duodenal perforation, cholecystectomy, biliary duct stenting. He used to see [facility] gastroenterology. He has a hx pancreatic biliary surgery for annular pancreas he also has a history of multiple ERCPs due to strictures status post surgery on his hepatobiliary system. No recent illness. [facility] Medical History (Updated 01/08/24 @ 18:[address] Jazmyn Steen, DO) Perforation of duodenum Esophagus perforation History of duodenal ulcer Biliary stricture Down syndrome Autism Home Medications ?Medication ?Instructions ?Recorded ?Last Taken ?Type sertraline 50 mg tablet 50 mg PO DAILY 03/05/15 2 Days Ago History ~06/23/20 loratadine 10 mg tablet (Allergy 10 mg PO DAILY 09/24/17 2 Days Ago History Relief (loratadine)) ~06/23/20 ondansetron 4 mg disintegrating 4 mg PO Q8H PRN PRN Nausea #10 tabs 06/22/20 06/24/20 Rx tablet cholecalciferol (vitamin D3) 50 4,000 unit PO DAILY SUPPLEMENT 06/25/20 2 Days Ago History mcg (2,000 unit) capsule ~06/23/20 omeprazole 20 mg capsule,delayed 20 mg PO DAILY 11/13/20 Unknown History release cyanocobalamin (vitamin B-12) 1,000 mcg IM QMONTH 01/08/24 Unknown History 1,000 mcg/mL injection solution doxycycline monohydrate 50 mg 50 mg PO DAILY 01/08/24 Unknown History tablet Allergy/AdvReac Type Severity Reaction Status Date / Time Penicillins (PCN) Allergy Unknown Other Verified 01/08/24 17:15 Surgical History Hx of cholecystectomy S/P ERCP Social History (Updated 11/13/20 @ 13:[address] Delio Aquino, DO) Smoking Status: Never smoker substance use type: does not use ROS Review of Systems ROS Unobtainable: other Constitutional Constitutional: Denies fatigue, fever(s), poor appetite, weight gain or weight loss ENT HEENT: Denies mouth lesions Cardiovascular Cardiovascular: Denies abdominal bloating, abdominal edema or abdominal pain Respiratory/Chest Respiratory/Chest: Denies change in mental status, change in phlegm color, chest congestion or chest tightness Gastrointestinal Gastrointestinal: Denies belching, bloating, change in bowel habits, change in stool character, chewing difficulty, coffee ground emesis, constipation, cramping, diarrhea, dyspepsia, dysphagia, early satiety, excessive flatus, fecal incontinence, heartburn, hematemesis, hematochezia, hemorrhoids, loose stools, melena, nausea, odynophagia, rectal bleeding, tenesmus, vomiting or weight changes Genitourinary Genitourinary: Denies abdominal discomfort, burning urination or itching Musculoskeletal Musculoskeletal: Reports as per HPI; Denies muscle weakness or myalgias Integumentary Integumentary: Denies jaundice Neurologic Neurologic: Denies lack of coordination or weakness Psychiatric Psychiatric: Denies confusion, depression, memory loss, mood swings, paranoia or suicidal ideation Endocrine Endocrinology: Denies systems reviewed and no addt'l complaints, except as documented Hematologic/Lymphatic Hematologic/Lymphatic: Denies anemia, easy bleeding, easy bruising or lymphadenopathy Allergic/Immunologic Allergic/Immunologic: Denies systems reviewed and no addt'l complaints, except as documented Vital Signs Vital Signs Vital Signs: 01/08/24 17:15 01/08/24 18:43 01/08/24 18:44 Temperature 98.2 F 97.8 F 97.9 F Temperature Source Temporal Temporal Pulse Rate 78 86 78 Respiratory Rate 16 16 16 Blood Pressure 108/79 110/80 110/80 Blood Pressure Mean 88 90 90 Blood Pressure Source Monitor Blood Pressure Position Supine Blood Pressure Location Right Arm Pulse Ox 99 98 98 Oxygen Delivery Method Room Air Room Air Weight Weight: 142 lb 14.4 oz Body Mass Index (BMI) 24.5 Physical Exam Const alert General Appearance: cooperative Orientation / Consciousness: oriented to person HEENT hearing grossly normal bilaterally Head and Scalp: normal to inspection Face and Sinus: face symmetric Nose: external nose normal Mouth: oral and palatal mucosa normal Eyes conjunctivae normal General Eye: normal appearance of both eyes Neck full ROM General: normal visual inspection Lymph Lymphatic: no lymphadenopathy noted Chest inspection of chest normal and palpation of chest normal Chest: symmetrical chest wall rise Resp normal respiratory effort Effort and Inspection: able to speak in complete sentences Cardio regular rate GI non-distended Percussion: normal to percussion Rectal Exam: deferred Neuro Speech: speech normal Gait (Neuro): normal gait Assessment & Plan Assessment/Plan (1) Food impaction of esophagus: PLAN: 20-year-old gentleman with history of esophageal food impactions in the past from unknown etiology presents with inability to swallow after eating at home. He believes it was a meat that was stuck. A lot of history is obtained from patient family because a history of Down syndrome. He would need to undergo an upper endoscopy because he cannot handle his own secretions. He was explained alternatives, risk, benefits including outstanding bleeding, infection, sepsis, perforation, need for emergent urgent . 11 ASA of 3.
--- NOTE | 2024-01-08 20:04 | OP.EGD_ITS ---
Patient Name: Wili Carlos Procedure Date: 01/08/2024 7:15 PM Date of : 1995 Age: 28 Procedure: Upper GI endoscopy Indications: Dysphagia Providers: Luis Angel Humphreys DO Medicines: Monitored Anesthesia Care Patient Profile: This is a 28 year old male. Refer to note in patient chart for documentation of history and physical. Patient has symptoms of dysphagia with both liquids and solids. Complications: No immediate complications. Procedure: Pre-Anesthesia Assessment: - Prior to the procedure, a History and Physical was performed, and patient medications and allergies were reviewed. The patient is competent. The risks and benefits of the procedure and the sedation options and risks were discussed with the patient. All questions were answered and informed consent was obtained. Patient identification and proposed procedure were verified by the physician in the pre-procedure area. Mental Status Examination: alert and oriented. Airway Examination: normal oropharyngeal airway and neck mobility. Respiratory Examination: clear to auscultation. CV Examination: normal. Prophylactic Antibiotics: The patient does not require prophylactic antibiotics. Prior Anticoagulants: The patient has taken no anticoagulant or antiplatelet agents. ASA Grade Assessment: III - A patient with severe systemic disease. After reviewing the risks and benefits, the patient was deemed in satisfactory condition to undergo the procedure. The anesthesia plan was to use monitored anesthesia care (MAC). Immediately prior to administration of medications, the patient was re-assessed for adequacy to receive sedatives. The heart rate, respiratory rate, oxygen saturations, blood pressure, adequacy of pulmonary ventilation, and response to care were monitored throughout the procedure. The physical status of the patient was re-assessed after the procedure. After obtaining informed consent, the endoscope was passed under direct vision. Throughout the procedure, the patient's blood pressure, pulse, and oxygen saturations were monitored continuously. The Endoscope was introduced through the mouth, and advanced to the duodenal bulb. The upper GI endoscopy was accomplished without difficulty. The patient tolerated the procedure well. Scope In: 7:31:13 PM Scope Out: 7:54:29 PM Total Procedure Duration Time 0 hours 23 minutes 16 seconds Findings: Food was found in the entire esophagus. Removal was accomplished with a Davidson net. Verification of patient identification for the specimen was done. Estimated blood loss was minimal. Mucosal changes including ringed esophagus, longitudinal furrows and small-caliber esophagus were found in the lower third of the esophagus. Biopsies were obtained from the proximal and distal esophagus with cold forceps for histology of suspected eosinophilic esophagitis. Verification of patient identification for the specimen was done. Estimated blood loss was minimal. A large, submucosal mass with no bleeding and no stigmata of recent bleeding was found at the gastroesophageal junction, 35 cm from the incisors. The mass was partially obstructing and not circumferential. Biopsies were taken with a cold forceps for histology. Verification of patient identification for the specimen was done. Estimated blood loss was minimal. The entire examined stomach was normal. There was evidence of a patent previous surgical anastomosis in the duodenal bulb. This was characterized by healthy appearing mucosa. Impression: - Food in the esophagus. Removal was successful. - Esophageal mucosal changes consistent with eosinophilic esophagitis. 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 Biopsied. - Normal stomach. - Patent previous surgical anastomosis, characterized by healthy appearing mucosa was found in the duodenum. - Biopsies were taken with a cold forceps for evaluation of eosinophilic esophagitis. Recommendation: - Discharge patient to home. - Full liquid diet daily. - Continue present medications. - Use Prilosec (omeprazole) 40 mg PO BID for 12 weeks. Procedure Code(s): --- Professional --- 46804, Esophagogastroduodenoscopy, flexible, transoral; with removal of foreign body(s) 91287, Esophagogastroduodenoscopy, flexible, transoral; with biopsy, single or multiple CPT copyright 2021 [employer]. All rights reserved. The codes documented in this report are preliminary and upon inpatient coder review may be revised to meet current compliance requirements. Luis Angel Humphreys DO 01/08/2024 8:03:05 PM This report has been signed electronically. Number of Addenda: 0 Note Initiated On: 01/08/2024 7:15 PM
--- NOTE | 2024-01-08 20:04 | OP.CCLET_ITS ---
01/08/2024 Calderon Tubbs Re : Upper GI endoscopy procedure for Wili Tubbs This procedure was performed on Monday, January 08, 2024. My impressions and recommendations are as follows: Impressions : - Food in the esophagus. Removal was successful. - Esophageal mucosal changes consistent with eosinophilic esophagitis. 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 Biopsied. - Normal stomach. - Patent previous surgical anastomosis, characterized by healthy appearing mucosa was found in the duodenum. - Biopsies were taken with a cold forceps for evaluation of eosinophilic esophagitis. Recommendations : - Discharge patient to home. - Full liquid diet daily. - Continue present medications. - Use Prilosec (omeprazole) 40 mg PO BID for 12 weeks. My findings are described in the full procedure note, which is enclosed. If I can be of further assistance, please feel free to contact me at . Sincerely, Luis Angel Humphreys, 01/08/2024 8:03:05 PM This report has been signed electronically.
--- NOTE | 2024-01-08 20:09 | PCM.POST.ANE ---
Anesthesia: Postop Eval I Current Vital Signs Temperature: 97 F Pulse Rate: 117 Blood Pressure: 131/120 (unable to get a reliable BP due to Pt moving (autistic, Downs syndrome)) Respiratory Rate: 22 Pulse Ox: 92 Oxygen Delivery Method: Venturi Mask Oxygen Flow Rate (L/min): 10 Assessment Airway patent: Yes Spontaneous unlabored respirations: Yes Mental status: Awake and Calm nausea: No Vomiting: No Anesthesia Complication: No Fluid Hydration Crystalloid volume administer (ml): 500 Total IV fluid infused: 500 Progress Note Post-operative progress note: pt coughing a lot, parents at bedside Anesthesia document: Postop Eval 1 completed: Yes
--- NOTE | 2024-01-08 20:11 | POSTOPAN2_ITS ---
Anesthesia Postop Eval I Sum Postop Eval Completion status Anesthesia document: Postop Eval 1 completed: Yes Anesthesia Postop Eval I Summary Anesthesia Postop Eval I Summary: Anesthesia Postop Eval I: Assessment Summary Airway patent Yes 01/08/24 20:11 AIRCRAFT STRUCTURAL DESIGN ENGINEER.[email or web address] Spontaneous unlabored Yes 01/08/24 20:11 AIRCRAFT STRUCTURAL DESIGN ENGINEER.JOSE LUIS respirations Mental status Awake,Calm 01/08/24 20:11 AIRCRAFT STRUCTURAL DESIGN ENGINEER.MDOT nausea No 01/08/24 20:11 AIRCRAFT STRUCTURAL DESIGN ENGINEER.MDOT Vomiting No 01/08/24 20:11 AIRCRAFT STRUCTURAL DESIGN ENGINEER.MDAMOS Anesthesia Postop Eval I: Fluid Summary Crystalloid volume administer 500 01/08/24 20:11 AIRCRAFT STRUCTURAL DESIGN ENGINEER.MDOT (ml) Colloids volume administered ( ml) Blood Product volume administered (ml) Total IV fluid infused 500 01/08/24 20:11 AIRCRAFT STRUCTURAL DESIGN ENGINEER.JOSE LUIS Anesthesia Postop Eval I: Summary Notes Anesthesia Complication No 01/08/24 20:11 AIRCRAFT STRUCTURAL DESIGN ENGINEER.JOSE LUIS Anesthesia Complication Comment: Post-operative progress note pt coughing a lot, 01/08/24 20:11 AIRCRAFT STRUCTURAL DESIGN ENGINEER.JOSE LUIS parents at bedside Anesthesia: Postop Eval II Evaluation Mental status: Awake and Calm Pain Level: 0 nausea: No Vomiting: No Complications Anesthesia Complication: No
--- NOTE | 2024-01-08 20:11 | PCM.POSTANE2 ---
Anesthesia Postop Eval I Sum Postop Eval Completion status Anesthesia document: Postop Eval 1 completed: Yes Anesthesia Postop Eval I Summary Anesthesia Postop Eval I Summary: Anesthesia Postop Eval I: Assessment Summary Airway patent Yes 01/08/24 20:11 FLATWORK FINISHER.[email or web address] Spontaneous unlabored Yes 01/08/24 20:11 FLATWORK FINISHER.JOSE LUIS respirations Mental status Awake,Calm 01/08/24 20:11 FLATWORK FINISHER.MDOT nausea No 01/08/24 20:11 FLATWORK FINISHER.MDOT Vomiting No 01/08/24 20:11 FLATWORK FINISHER.MDAMOS Anesthesia Postop Eval I: Fluid Summary Crystalloid volume administer 500 01/08/24 20:11 FLATWORK FINISHER.MDOT (ml) Colloids volume administered ( ml) Blood Product volume administered (ml) Total IV fluid infused 500 01/08/24 20:11 FLATWORK FINISHER.JOSE LUIS Anesthesia Postop Eval I: Summary Notes Anesthesia Complication No 01/08/24 20:11 FLATWORK FINISHER.JOSE LUIS Anesthesia Complication Comment: Post-operative progress note pt coughing a lot, 01/08/24 20:11 FLATWORK FINISHER.JOSE LUIS parents at bedside Anesthesia: Postop Eval II Evaluation Mental status: Awake and Calm Pain Level: 0 nausea: No Vomiting: No Complications Anesthesia Complication: No
[2024-01-08] MEDS: Pantoprazole Sodium 40 MG in 0.9% Normal Saline (100mL MB+) 100 ML 330 MG IV (20:18)
[2024-01-08] MEDS: Acetaminophen 500 MG Tablet 1000 MG PO (20:49)
--- NOTE | 2024-01-08 21:38 | SUR.PHASEI ---
respiratory at bedside,
--- NOTE | 2024-01-08 21:39 | SUR.PHASEI ---
cpap to be donned.
[2024-01-08] MEDS: Ipratropium/Albuterol Sulfate 3 ML AMPUL.NEB INHALATION (21:40)
--- NOTE | 2024-01-08 21:45 | RAD_ITS ---
EXAM: XR CHEST, 1 VIEW CLINICAL INDICATION: hypoxia TECHNIQUE: Frontal view of the chest. COMPARISON: 11/13/2020 FINDINGS: LUNGS AND PLEURAL SPACES: Patchy pulmonary opacities mostly in the perihilar and basilar lungs suggestive of pulmonary edema and/or pneumonia. No pneumothorax. No effusion. HEART: No significant abnormality. Cardiac silhouette not enlarged. MEDIASTINUM: Central airways and mediastinal contour are unremarkable. BONES/JOINTS: No significant abnormality. No acute fracture. SOFT TISSUES: No significant abnormality. RAD/Chest 1 View (Portable) IMPRESSION: Patchy pulmonary opacities mostly in the perihilar and basilar lungs suggestive of pulmonary edema and/or pneumonia. Electronically Signed: Ricky East DO at 22:53 EDT ,
--- NOTE | 2024-01-08 21:50 | SUR.PHASEI ---
cpap on house sup at bedside
--- NOTE | 2024-01-08 22:08 | SUR.PHASEI ---
house sup aware of admission order
--- NOTE | 2024-01-08 22:48 | SUR.PHASEI ---
parents describe patient vomiting at home and in ER. this nurse concern for aspiration and retaining cO2 d/t frequent coughing in pacu. chest xray performed. cpap donned. Patient transfered to ICU, PCU status. VSS. Patient appears to be improved after cpap use. hospitalist Jakob to manage. Dr. Humphreys and Dr. Shirley aware.
--- NOTE | 2024-01-08 23:07 | PCM.HP.STD ---
HPI - General General Date of Admission: 01/08/24 Date of Service: 01/08/24 Chief Complaint: food impaction HPI Narrative NAKUL GARCIA, is a 28 M who presents to the hospital with food impaction in the esophagus. Patient has significant past medical history of Down syndrome. Patient was taken to the OR by Dr. Humphreys and obstruction was removed. There was concern for aspiration. It was reported the patient had some wheezing post procedure and there was concern enough to have him admitted for observation overnight to assure safe discharge in the morning. Per mom in the room who is primary caregiver the patient she feels that he is doing much better at this time of my evaluation. Patient denies any chest pain, shortness of breath no fevers or chills and states he is feeling much better. [facility] Medical History (Updated 01/08/24 @ 18:[address] Jazmyn Steen, ) Perforation of duodenum Esophagus perforation History of duodenal ulcer Biliary stricture Down syndrome Autism Home Medications ?Medication ?Instructions ?Recorded ?Last Taken ?Type sertraline 50 mg tablet 50 mg PO DAILY 03/05/15 2 Days Ago History ~06/23/20 loratadine 10 mg tablet (Allergy 10 mg PO DAILY 09/24/17 2 Days Ago History Relief (loratadine)) ~06/23/20 ondansetron 4 mg disintegrating 4 mg PO Q8H PRN PRN Nausea #10 tabs 06/22/20 06/24/20 Rx tablet cholecalciferol (vitamin D3) 50 4,000 unit PO DAILY SUPPLEMENT 06/25/20 2 Days Ago History mcg (2,000 unit) capsule ~06/23/20 omeprazole 20 mg capsule,delayed 20 mg PO DAILY 11/13/20 Unknown History release cyanocobalamin (vitamin B-12) 1,000 mcg IM QMONTH 01/08/24 Unknown History 1,000 mcg/mL injection solution doxycycline monohydrate 50 mg 50 mg PO DAILY 01/08/24 Unknown History tablet omeprazole 40 mg capsule,delayed 40 mg PO BID #60 caps 01/08/24 Unknown Rx release Allergy/AdvReac Type Severity Reaction Status Date / Time Penicillins (PCN) Allergy Unknown Other Verified 01/08/24 17:15 Surgical History Hx of cholecystectomy S/P ERCP Social History (Updated 11/13/20 @ 13:[address] Delio Aquino, DO) Smoking Status: Never smoker substance use type: does not use ROS Constitutional Constitutional: Denies chills or fever(s) ENT HEENT: Denies abnormal hearing Cardiovascular Cardiovascular: Denies chest pain Respiratory/Chest Respiratory/Chest: Denies shortness of breath at rest Gastrointestinal Gastrointestinal: Denies abdominal pain Musculoskeletal Musculoskeletal: Denies back pain Integumentary Integumentary: Denies dry skin Psychiatric Psychiatric: Denies anxiety Vital Signs Vital Signs Vital Signs: 01/08/24 17:15 01/08/24 18:43 01/08/24 18:44 Temperature 98.2 F 97.8 F 97.9 F Temperature Source Temporal Temporal Pulse Rate 78 86 78 Respiratory Rate 16 16 16 Respiratory Pattern Blood Pressure 108/79 110/80 110/80 Blood Pressure Mean 88 90 90 Blood Pressure Source Monitor Blood Pressure Position Supine Blood Pressure Location Right Arm Baseline BP Pulse Ox 99 98 98 Oxygen Delivery Method Room Air Room Air Oxygen Flow Rate (L/min) 01/08/24 19:18 01/08/24 20:03 01/08/24 20:05 Temperature 97.9 F 98.3 F Temperature Source Temporal Pulse Rate 78 115 H 115 H Respiratory Rate 16 16 20 H Respiratory Pattern Normal Blood Pressure 110/80 133/127 H 133/127 H Blood Pressure Mean 129 129 Blood Pressure Source Monitor Monitor Blood Pressure Position Semi-Fowlers Semi-Fowlers Blood Pressure Location Right Arm Baseline BP 110/80 110/80 Pulse Ox 98 77 86 Oxygen Delivery Method Room Air Nasal Cannula Oxygen Flow Rate (L/min) 4 01/08/24 20:10 01/08/24 20:11 01/08/24 20:15 Temperature 97 F L Temperature Source Pulse Rate 117 H 117 H 110 H Respiratory Rate 20 H 22 H 20 H Respiratory Pattern Blood Pressure 151/133 H 131/120 H 110/62 Blood Pressure Mean 139 78 Blood Pressure Source Monitor Monitor Blood Pressure Position Semi-Fowlers Semi-Fowlers Blood Pressure Location Right Arm Right Arm Baseline BP 110/80 110/80 Pulse Ox 86 92 91 Oxygen Delivery Method Simple Mask Venturi Mask Non-Rebreather Oxygen Flow Rate (L/min) 10 10 10 01/08/24 20:30 01/08/24 20:35 01/08/24 20:45 Temperature Temperature Source Pulse Rate 89 94 93 Respiratory Rate 24 H 20 H 30 H Respiratory Pattern Blood Pressure 105/54 L 100/77 92/63 Blood Pressure Mean 71 84 72 Blood Pressure Source Monitor Monitor Monitor Blood Pressure Position Semi-Fowlers Semi-Fowlers Semi-Fowlers Blood Pressure Location Right Arm Right Arm Baseline BP 110/80 110/80 110/80 Pulse Ox 88 86 Oxygen Delivery Method Nasal Cannula Nasal Cannula Nasal Cannula Oxygen Flow Rate (L/min) 4 4 4 01/08/24 20:55 01/08/24 21:20 01/08/24 21:32 Temperature 97.9 F Temperature Source Temporal Pulse Rate 97 Respiratory Rate 26 H Respiratory Pattern Blood Pressure 103/72 Blood Pressure Mean 82 Blood Pressure Source Blood Pressure Position Blood Pressure Location Baseline BP 110/80 110/80 110/80 Pulse Ox 86 91 89 Oxygen Delivery Method Nasal Cannula Nasal Cannula Non-Rebreather Oxygen Flow Rate (L/min) 4 4 10 01/08/24 21:35 01/08/24 21:47 01/08/24 22:00 Temperature Temperature Source Pulse Rate 96 86 91 Respiratory Rate 26 H 28 H 35 H Respiratory Pattern Blood Pressure 118/102 H 111/84 H 118/81 H Blood Pressure Mean 107 93 93 Blood Pressure Source Monitor Monitor Monitor Blood Pressure Position Semi-Fowlers Semi-Fowlers Semi-Fowlers Blood Pressure Location Left Arm Left Arm Left Arm Baseline BP 110/80 110/80 110/80 Pulse Ox 96 95 94 Oxygen Delivery Method Non-Rebreather CPAP CPAP Oxygen Flow Rate (L/min) 01/08/24 22:12 01/08/24 22:15 Temperature Temperature Source Pulse Rate 101 H Respiratory Rate 35 H Respiratory Pattern Blood Pressure 125/69 H Blood Pressure Mean 87 Blood Pressure Source Monitor Blood Pressure Position Semi-Fowlers Blood Pressure Location Left Arm Baseline BP 110/80 110/80 Pulse Ox 98 98 Oxygen Delivery Method CPAP CPAP Oxygen Flow Rate (L/min) Weight Weight: 144 lb 9.972 oz Body Mass Index (BMI) 24.0 Physical Exam Const alert, no apparent distress and well nourished HEENT normocephalic and head/scalp atraumatic Neck no lymphadenopathy Lymph Lymphatic: no lymphadenopathy noted Resp normal respiratory effort, normal air movement and clear to auscultation bilaterally Cardio regular rate, regular rhythm, S1 normal heart sound and S2 normal heart sound GI normal to inspection, nondistended, normoactive bowel sounds Skin General Skin Exam: no breakdown Neuro no focal motor deficits and no sensory deficits noted Psych cooperative and affect normal Results Imaging Radiology Impression Chest X-Ray 01/08/24 21:45 IMPRESSION: Patchy pulmonary opacities mostly in the perihilar and basilar lungs suggestive of pulmonary edema and/or pneumonia. Electronically Signed: Ricky East DO at 22:53 EDT , Assessment & Plan Assessment/Plan (1) Food impaction of esophagus: PLAN: Admit patient for overnight observation, breathing treatments as needed. Respiratory therapy to monitor. Will hold off on antibiotics unless it is felt necessary in the morning. Charges/Coding Visit Charges OBSV E&M: 06091 Observ/hosp same date L2
--- NOTE | 2024-01-08 23:38 | CPS ---
RT called to PACU to bring bipap/cpap , pt was having problems oxygenating post procedure. Bipap started with nasal mask. Pt wears nasal mask at home and is more likely to leave on, rather than a full face mask.
[2024-01-09 02:04] VITALS: PULSE 85; RESP 14; RESP 22; O2SAT 98
[2024-01-09 02:37] VITALS: BP 99/68; PULSE 88; RESP 17; TEMP 36.3; O2SAT 97
[2024-01-09 04:58] VITALS: PULSE 92; RESP 14; RESP 26; O2SAT 98
[2024-01-09] MEDS: Ipratropium/Albuterol Sulfate 3 ML AMPUL.NEB INHALATION (06:54)
[2024-01-09 06:57] VITALS: PULSE 90; RESP 20
[2024-01-09 08:31] VITALS: BP 94/49; PULSE 100; RESP 18; TEMP 36.3; O2SAT 95
--- NOTE | 2024-01-09 10:22 | CASEMGMT ---
Met with patients parents to complete BARAH[place] form. BAR[place] form explained to his parents who voiced understanding and signed form. Original form placed in pt?s chart and copy provided to patient. Fabienne Garcia, Discharge Planning Asst
--- NOTE | 2024-01-09 11:18 | DS.PCM_ITS ---
Providers Date of Admission: 01/08/24 Date of Discharge: 01/09/24 Primary Care Physician: Dr. Calderon Tubbs MD Reason For Visit: FOOD IMPACTION IN ESOPHAGUS Diagnosis Discharge Diagnosis (1) Food impaction of esophagus: Status: Acute Code(s): T18.128A - Food in esophagus causing other injury, initial encounter; [id number].[id number] - Food entering into or through a natural orifice, initial encounter Medications at Discharge Home Medications sertraline 50 mg tablet 50 mg PO DAILY 03/05/15 loratadine 10 mg tablet (Allergy Relief (loratadine)) 10 mg PO DAILY 09/24/17 ondansetron 4 mg disintegrating tablet 4 mg PO Q8H PRN PRN Nausea #10 tabs 06/22/20 cholecalciferol (vitamin D3) 50 mcg (2,000 unit) capsule 4,000 unit PO DAILY SUPPLEMENT 06/25/20 omeprazole 20 mg capsule,delayed release 20 mg PO DAILY 11/13/20 cyanocobalamin (vitamin B-12) 1,000 mcg/mL injection solution 1,000 mcg IM QMON TH 01/08/24 doxycycline monohydrate 50 mg tablet 50 mg PO DAILY 01/08/24 omeprazole 40 mg capsule,delayed release 40 mg PO BID #60 caps 01/08/24 Hospital Course Operations None Procedures EGD Summary of Care Provided Minutes Spent on Discharge: 45 Hospital Course: Patient is a 28-year-old male with a past medical history as outlined including Down syndrome was admitted through the ED on 01/08/2024 with a complaint of food impaction. He had been eating and started choking. There was concern for impaction. He subsequently could not swallow any food at all and was bringing out a lot of mucus. He was therefore brought into the ED and gastroenterology was consulted. He was emergently taken to the OR in the fluid bolus that was causing the obstruction was removed. He had some wheezing post EGD and there was concern for aspiration so he was brought in and admitted to be managed for postprocedure hypoxia in the setting of food impaction. 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 Patient did very well and did not require any oxygen. He remained stable and was discharged home on 01/09/2024. Patient seen and examined. His parents were by his bedside. He had no complaints and said he felt well. He wanted his pulse ox meter to be taken off. His blood pressure was running a bit low with systolic in the 90s. However per his parents he usually runs low like that. Review of systems otherwise negative. Labs and vitals reviewed. Home medication reviewed and reconciled. Per gastroenterology, he is to be on liquid diet for 5 days, then to advance diet to regular diet as tolerated. He is to follow up with gastroenterology on outpatient basis for further management of the benign esophageal tumor. Physical Exam Const alert and no apparent distress General Appearance: cooperative and comfortable Orientation / Consciousness: awake Exam Limitations: no limitations HEENT normocephalic, head/scalp atraumatic, hearing grossly normal bilaterally and moist oral mucous membranes Mouth: oral and palatal mucosa normal Eyes PERRL, EOMs intact bilaterally and conjunctivae normal Neck no lymphadenopathy and supple Resp normal respiratory effort, no retractions, no use of accessory muscles and clear to auscultation bilaterally Cardio regular rate, regular rhythm, S1 normal heart sound, S2 normal heart sound and no murmurs GI normal to inspection, nondistended, normoactive bowel sounds, soft to palpation and non-tender Extremity normal to inspection, full ROM and no clubbing, cyanosis or edema Skin no rashes or lesions noted and no wounds Neuro oriented x3, CN's II-XII intact bilaterally, moves all extremities, no focal motor deficits and no sensory deficits noted Sensorium / Orientation: awake and alert Motor Exam: strength 5/5 throughout Psych affect normal Weight / BMI Weight Weight: 144 lb 9.972 oz Body Mass Index (BMI) 24.0 Radiography Diagnostic Testing: Radiology Impression Chest X-Ray 01/08/24 21:45 IMPRESSION: Patchy pulmonary opacities mostly in the perihilar and basilar lungs suggestive of pulmonary edema and/or pneumonia. Electronically Signed: Ricky East DO at 22:53 EDT , D/C Instructions Discharge Diet: - (full liquid diet for 5 days, then advance as tolerated to regular diet.) Discharge Activity: Return to Normal Activity Weight Bearing Status: Weight bearing as tolerated Call your doctor if you observe: Fever of 101 or Higher, Shortness of breath, Dizziness, Swelling in the ankles and Chest pain Meaningful Use Info Meaningful Use Meaningful Use Diagnoses (Choose all that apply): None applicable Ischemic Stroke Statin Dosing Therapy Reference: STATIN DOSE THERAPY REFERENCE: * Patients > 75 years receive moderate or high dose statin therapy. * Patients 75 years or YOUNGER should receive HIGH intensity statin dose unless contraindicated. You will be required to document reason for non-treatment if statin daily dose does not meet guidelines. HIGH DOSE STATIN THERAPY DAILY Atorvastatin > than or = to 40 mg Rosuvastatin > than or = to 20 mg Amlodipine + Atorvastatin > than or = to 2.5/40 mg Ezetimibe + Simvastatin 10/80 mg Simvastatin 80mg Discharge Plan Admission Admit Date/Time: 01/08/24 22:06 Primary Reason for Your Visit: food impaction Attending Provider: Lucia Gutierrez Primary Care Provider: Calderon Tubbs Consulting Providers: Trever Ramos Instructions Additional Instructions / Restrictions: to be on liquid diet for 5 days, and then to advance slowly as tolerated to a regular diet. Discharge Orders/Prescriptions Prescriptions: Continued sertraline 50 MG tablet 50 mg PO DAILY Patient Comments: depression loratadine [Allergy Relief (loratadine)] 10 MG tablet 10 mg PO DAILY ondansetron 4 MG tablet 4 mg PO Q8H PRN PRN (Reason: Nausea) Qty: 10 0RF cholecalciferol (vitamin D3) 50 MCG capsule 4,000 unit PO DAILY omeprazole 20 mg Capsule,Delayed Release(Dr/Ec) 20 mg PO DAILY doxycycline monohydrate 50 mg tablet 50 mg PO DAILY cyanocobalamin (vitamin B-12) 1,000 mcg/mL solution 1,000 mcg IM QMONTH omeprazole 40 mg capsule,delayed release(DR/EC) 40 mg PO BID Qty: 60 3RF Referrals / Follow Up: Luis Angel Humphreys DO [Med Staff - Active Staff] - Within 2 Weeks Calderon Tubbs MD [Primary Care Provider] - Within 1 Week Disposition Disposition (needs filled in before D/C Order can be placed): Home, Self Care Charges/Coding Visit Charges Inpatient E&M: 39772 Disch Hosp >30min
== END 2024-01-09 11:30 | disposition home or self-care (01) ==
LOC: ED 19:13 → SDC 19:17 → EN 19:19 → ICU 22:38
PROVIDERS: Admitting Provider Family Medicine; Emergency Provider Emergency Medicine; PCP Family Medicine; Referring Provider Internal Medicine Gastroenterology; Visit Provider Student in an Organized Health Care Education/Training Program
PROC: 0DJ08ZZ Inspection of Upper Intestinal Tract, Via Natural or Artificial Opening Endoscopic (ICD-10-PCS; CPT 43235; principal; 2024-01-08 19:15)
DX: T18.128A Food in esophagus causing other injury, initial encounter (principal); R09.02 Hypoxemia; F84.0 Autistic disorder; W44.F3XA Food entering into or through a natural orifice, initial encounter; Q90.9 Down syndrome, unspecified; Z79.899 Other long term (current) drug therapy; K22.2 Esophageal obstruction
CPT/HCPCS: 43247; 71045; 88305; 88312; 94002; 94003; 94640; 99221; 99284; J7030; J7120; A4216; G0378; J1610; J2405